=== PATIENT | male | born 1950 | race Caucasian/White ===

== ENCOUNTER 2019-08-24 18:37 | Emergency (ER) | payer OTHER, SELFPAY ==
[2019-08-24 18:38] VITALS: BP 162/95; PULSE 114; RESP 16; TEMP 37.7; O2SAT 96; BMI 28.1
[2019-08-24] MEDS: Mag Hydrox/Al Hydrox/Simeth 30 ML UDC PO (20:11)
--- NOTE | 2019-08-24 20:15 | RAD_ITS ---
STUDY: X-RAY CHEST REASON FOR EXAM: Male, 69 years old. Cough TECHNIQUE: Frontal and lateral views COMPARISON: None. FINDINGS: The lungs are clear and expanded. There is no demonstrated pleural abnormality. Normal size heart. Normal mediastinum and adwoa. Normal visualized pulmonary arteries. Normal visualized aortic arch and descending thoracic aorta. Degenerative changes of the visualized thoracic spine. Normal visualized ribs, clavicles, and shoulders. There is no demonstrated abnormality of the visualized soft tissue structures of the upper abdomen. RAD/Chest PA and Lateral IMPRESSION: Normal x-ray examination of the chest. Electronically Signed: Fransisco Khan DO at 20:26 EST Tel [phone], Service support ,
--- NOTE | 2019-08-24 20:47 | ED.VISSUMM ---
- ER Visit Summary Date of Service: 08/24/19 Chief Complaint: Chest cold History of Present Illness: The patient is a 69 M who presents with chest congestion and sore throat that has been getting worse over the past 4 to 5 days. Patient describes the pain as a burning sensation. Patient states it is in his throat and upper chest. Patient admits to some nasal congestion. Patient also admits to a cough with some yellow rhinorrhea. Patient denies any nausea or vomiting. Patient denies any chest pain or shortness of breath. Patient admits to a low-grade fever of 100 at home. Physical Examination: Vital signs are stable except for slight tachycardia of 114. Patient is afebrile. Patient is in no acute distress. Oral mucosa is pink and moist. Oropharynx shows some postnasal drainage. There is no erythema or exudates. Neck is supple. Trachea is midline. There is no JVD noted. Heart was regular rate and rhythm. Lungs are clear and equal bilaterally. Abdomen is soft. Bowel sounds are normal. There is no tenderness. There is no rebound or guarding noted. Skin is warm dry. Cranial nerves II through XII are intact. There are no focal motor or sensory deficits noted. Extremities are intact. There is no calf tenderness or edema. Test Results: PA and lateral chest x-ray was obtained. There is no acute cardiopulmonary process. This was interpreted by the radiologist and myself. Emergency Department Course and Treatment: Patient was given a GI cocktail. Patient felt better after this. Patient was advised that this is most likely a viral upper respiratory infection in his sore throat was due to his postnasal drainage. Patient was instructed to drink plenty of fluids. Patient was instructed to follow-up with his primary care physician in 5 to 7 days. Patient understood and was agreeable with the plan. All questions were answered. Disposition: Discharge home Impression: Viral upper respiratory infection This note was generated with [employer] dictation software. It may contain incorrect words, spelling, and punctuation that were not noted in review of the chart prior to signing ED Disposition - Plan for ED Patient: Disposition: Home or Assisted Living Diagnosis: Viral upper respiratory infection Instructions: PHARYNGITIS, Viral Referrals: Martin Clark DO [Primary Care Provider] - 5-7 Days
[2019-08-24 20:53] VITALS: PULSE 90; RESP 16; O2SAT 98
== END 2019-08-24 20:54 | disposition home or self-care (01) ==
PROVIDERS: Emergency Provider Emergency Medicine; Family Provider Family Medicine; PCP Family Medicine
DX: J06.9 Acute upper respiratory infection, unspecified (principal)
CPT/HCPCS: 71046; 99283

== ENCOUNTER 2023-04-21 06:44 | Day surgery (SDC) | payer SELFPAY, OTHER ==
[2023-04-21] VITALS (7 sets, daily range): BP systolic 112–135; BP diastolic 64–85; PULSE 56–66; RESP 16–18; TEMP 36.3–36.9; O2SAT 95–100; BMI 27.9
[2023-04-21] MEDS: Lactated Ringers 1,000 ML 15 ML IV (07:35)
--- NOTE | 2023-04-21 07:53 | PCM.HP.STD ---
[facility] - General General Date of Admission: 04/21/23 Date of Service: 04/21/23 Chief Complaint: Screening colonoscopy HPI Vidya RUTH, is a 72 M who presents here for screening colonoscopy. He has no significant past medical history. He has not had a colonoscopy in the past. He does not have any abdominal pain, cramping or diarrhea. He is no signs or symptoms of lower GI bleeding. His weight has been stable. Is no family history of colon polyps or colon malignancy. [facility] Medical History (Updated 04/21/23 @ 07:42 by Reba Singh) Former smoker Knee arthropathy Wears dentures Wears glasses Home Medications NK 08/24/19 [History Last Taken Unknown] Allergy/AdvReac Type Severity Reaction Status Date / Time No Known Allergies Allergy Verified 03/12/23 11:31 Family History (Updated 04/21/23 @ 07:30 by Reba Singh) Brother Myocardial infarction Cony Gehrig disease Social History household members: spouse Smoking Status: Unknown if ever smoked torito/spiritism: Anabaptism ROS Review of Systems ROS Unobtainable: other Constitutional Constitutional: Denies fatigue, fever(s), poor appetite, weight gain or weight loss ENT HEENT: Denies mouth lesions Cardiovascular Cardiovascular: Denies abdominal bloating, abdominal edema or abdominal pain Respiratory/Chest Respiratory/Chest: Denies change in mental status, change in phlegm color, chest congestion or chest tightness Gastrointestinal Gastrointestinal: Denies belching, bloating, change in bowel habits, change in stool character, chewing difficulty, coffee ground emesis, constipation, cramping, diarrhea, dyspepsia, dysphagia, early satiety, excessive flatus, fecal incontinence, heartburn, hematemesis, hematochezia, hemorrhoids, loose stools, melena, nausea, odynophagia, rectal bleeding, tenesmus, vomiting or weight changes Genitourinary Genitourinary: Denies abdominal discomfort, burning urination or itching Musculoskeletal Musculoskeletal: Reports as per HPI; Denies muscle weakness or myalgias Integumentary Integumentary: Denies jaundice Neurologic Neurologic: Denies lack of coordination or weakness Psychiatric Psychiatric: Denies confusion, depression, memory loss, mood swings, paranoia or suicidal ideation Endocrine Endocrinology: Denies systems reviewed and no addt'l complaints, except as documented Hematologic/Lymphatic Hematologic/Lymphatic: Denies anemia, easy bleeding, easy bruising or lymphadenopathy Allergic/Immunologic Allergic/Immunologic: Denies systems reviewed and no addt'l complaints, except as documented Vital Signs Vital Signs Vital Signs: 04/21/23 07:31 04/21/23 07:31 Temperature 98.5 F Temperature Source Temporal Pulse Rate 56 L Respiratory Rate 18 Respiratory Pattern Normal Blood Pressure 135/73 H Blood Pressure Mean 93 Blood Pressure Source Monitor Blood Pressure Position Semi-Fowlers Blood Pressure Location Left Arm Pulse Ox 95 Oxygen Delivery Method Room Air Weight Weight: 184 lb Body Mass Index (BMI) 27.9 Physical Exam Const alert General Appearance: cooperative Orientation / Consciousness: oriented to person HEENT hearing grossly normal bilaterally Head and Scalp: normal to inspection Face and Sinus: face symmetric Nose: external nose normal Mouth: oral and palatal mucosa normal Eyes conjunctivae normal General Eye: normal appearance of both eyes Neck full ROM General: normal visual inspection Lymph Lymphatic: no lymphadenopathy noted Chest inspection of chest normal and palpation of chest normal Chest: symmetrical chest wall rise Resp normal respiratory effort Effort and Inspection: able to speak in complete sentences Cardio regular rate GI non-distended Percussion: normal to percussion Rectal Exam: deferred Neuro Speech: speech normal Gait (Neuro): normal gait Assessment & Plan Assessment/Plan (1) Encounter for screening for malignant neoplasm of colon: PLAN: He was explained alternatives, risk, benefits including not withstanding bleeding, infection, sepsis, perforation, need for emergent surgery . He will have an ASA of 2.
--- NOTE | 2023-04-21 08:00 | COLBX_PTH ---
PATIENT: AKASH RUTH LOC: [facility] U#:[id number] AGE/SX: 72/M ROOM: RE04/21/[address]: Dr. Giles Jensen DO : 1950 BED: DIS: 04/21/2023 SPEC #: [id number] RECD: 04/21/23 09:43 STATUS: SOLIS KEKE #: [id number] JESSIE: 04/21/23 08:[address]: Giles Jensen DEPT: SURGICAL PATHOLOGY RECD BY: Margret Lott ENTERED: 04/21/23 11:01 SP TYPE: COLON BX JACKY DR: Dr. Martin Clark DO Tissues: A - COLON BIOPSY B - Sigmoid colon biopsy C - Rectum, NOS Procedures: Surgery Specimen Level IV HEADER OPERATION: Colonoscopy - open access with polypectomy and biopsies PRE-OP DIAGNOSIS: Screening TISSUE SUBMITTED: A - Splenic flexure polyp, B - Sigmoid colon polyp biopsy, C - Rectal polyp biopsy MICROSCOPIC DIAGNOSIS A. Splenic flexure polyp, polypectomy: Tubular adenoma. Pigment laden macrophages, consistent with melanosis coli. B. Sigmoid colon polyp, biopsy: A fragment of colonic mucosa with pigment laden macrophages, consistent with melanosis coli. C. Rectal polyp, biopsy: Fragments of colonic mucosa with pigment laden macrophages, consistent with melanosis coli. SJ:cata 04/22/2023 MICROSCOPIC DESCRIPTION Slides are reviewed. GROSS DESCRIPTION A - Received in fixative is one container labeled with the patient's name and designated splenic flexure polyp. The specimen consists of multiple irregular fragments of light mukherjee soft tissue mixed with fecal material that in aggregate measure 2.5 x 0.4 x 0.1 cm. The specimen is totally submitted in one cassette. B - Received in fixative is one container labeled with the patient's name and designated sigmoid colon polyp biopsy. The specimen consists of one irregular fragment of light mukherjee soft tissue that measures 0.5 x 0.3 x 0.1 cm. The specimen is totally submitted in one cassette. C - Received in fixative is one container labeled with the patient's name and designated rectal polyp biopsy. The specimen consists of multiple irregular fragments of light mukherjee soft tissue that in aggregate measure 0.6 x 0.3 x 0.1 cm. The specimen is totally submitted in one cassette. / SJ:cata 04/21/2023 TC:1 CPT: 70274 x3
--- NOTE | 2023-04-21 08:26 | OP.COLON_ITS ---
Patient Name: Alex Hardin Procedure Date: 04/21/2023 7:52 AM Date of : 1950 Age: 72 Procedure: Colonoscopy Indications: Screening for colorectal malignant neoplasm Providers: Giles Jensen DO Medicines: Monitored Anesthesia Care Patient Profile: This is a 72 year old male. Refer to note in patient chart for documentation of history and physical. Last Colonoscopy: none. The patient's first colonoscopy is today. Complications: No immediate complications. Procedure: Pre-Anesthesia Assessment: - Prior to the procedure, a History and Physical was performed, and patient medications and allergies were reviewed. The risks and benefits of the procedure and the sedation options and risks were discussed with the patient. All questions were answered and informed consent was obtained. Patient identification and proposed procedure were verified by the physician in the pre-procedure area. Mental Status Examination: alert and oriented. Airway Examination: normal oropharyngeal airway and neck mobility. Respiratory Examination: clear to auscultation. CV Examination: normal. Prophylactic Antibiotics: The patient does not require prophylactic antibiotics. Prior Anticoagulants: The patient has taken no anticoagulant or antiplatelet agents. ASA Grade Assessment: II - A patient with mild systemic disease. After reviewing the risks and benefits, the patient was deemed in satisfactory condition to undergo the procedure. The anesthesia plan was to use monitored anesthesia care (MAC). Immediately prior to administration of medications, the patient was re-assessed for adequacy to receive sedatives. The heart rate, respiratory rate, oxygen saturations, blood pressure, adequacy of pulmonary ventilation, and response to care were monitored throughout the procedure. The physical status of the patient was re-assessed after the procedure. After I obtained informed consent, the scope was passed under direct vision. Throughout the procedure, the patient's blood pressure, pulse, and oxygen saturations were monitored continuously. The Colonoscope was introduced through the anus and advanced to the cecum, identified by appendiceal orifice and ileocecal valve. The colonoscopy was performed without difficulty. The patient tolerated the procedure well. The quality of the bowel preparation was adequate. Scope In: 8:03:02 AM Scope Withdrawal Time 0 hours 9 minutes 19 seconds Scope Out: 8:20:35 AM Total Procedure Duration Time 0 hours 17 minutes 33 seconds Findings: The perianal and digital rectal examinations were normal. A few small and large-mouthed diverticula were found in the recto-sigmoid colon and sigmoid colon. A 7 mm polyp was found in the splenic flexure. The polyp was sessile. The polyp was removed with a hot snare. Resection and retrieval were complete. Verification of patient identification for the specimen was done. Estimated blood loss was minimal. Two sessile polyps were found in the rectum and sigmoid colon. The polyps were 1 to 2 mm in size. These polyps were removed with a cold snare. Resection and retrieval were complete. Verification of patient identification for the specimen was done. Estimated blood loss was minimal. A diffuse area of severe melanosis was found in the entire colon. Biopsies were taken with a cold forceps for histology. Verification of patient identification for the specimen was done. Estimated blood loss was minimal. Impression: - Diverticulosis in the recto-sigmoid colon and in the sigmoid colon. - One 7 mm polyp at the splenic flexure, removed with a hot snare. Resected and retrieved. - Two 1 to 2 mm polyps in the rectum and in the sigmoid colon, removed with a cold snare. Resected and retrieved. - Melanosis in the colon. Biopsied. Recommendation: - Discharge patient to home. - Resume previous diet. - Continue present medications. - Await pathology results. - Repeat colonoscopy in 5 years for surveillance. Procedure Code(s): --- Professional --- 60023, Colonoscopy, flexible; with removal of tumor(s), polyp(s), or other lesion(s) by snare technique 01811, 59, Colonoscopy, flexible; with biopsy, single or multiple CPT copyright 2021 [employer]. All rights reserved. The codes documented in this report are preliminary and upon chiller operator review may be revised to meet current compliance requirements. Giles Jensen DO 04/21/2023 8:26:21 AM This report has been signed electronically. Number of Addenda: 0 Note Initiated On: 04/21/2023 7:52 AM
--- NOTE | 2023-04-21 08:27 | OP.CCLET_ITS ---
04/21/2023 Martin lCark Re : Colonoscopy procedure for Alex Henleyr Amber This procedure was performed on Friday, April 21, 2023. My impressions and recommendations are as follows: Impressions : - Diverticulosis in the recto-sigmoid colon and in the sigmoid colon. - One 7 mm polyp at the splenic flexure, removed with a hot snare. Resected and retrieved. - Two 1 to 2 mm polyps in the rectum and in the sigmoid colon, removed with a cold snare. Resected and retrieved. - Melanosis in the colon. Biopsied. Recommendations : - Discharge patient to home. - Resume previous diet. - Continue present medications. - Await pathology results. - Repeat colonoscopy in 5 years for surveillance. My findings are described in the full procedure note, which is enclosed. If I can be of further assistance, please feel free to contact me at . Sincerely, Giles Jensen, 04/21/2023 8:26:21 AM This report has been signed electronically.
== END 2023-04-21 09:22 | disposition home or self-care (01) ==
LOC: EN 06:48 → AC 06:48
PROVIDERS: PCP Family Medicine; Referring Provider Family Medicine; Visit Provider Internal Medicine Gastroenterology
PROC: 0DJD8ZZ Inspection of Lower Intestinal Tract, Via Natural or Artificial Opening Endoscopic (ICD-10-PCS; CPT 45378; principal; 2023-04-21 07:55)
DX: Z12.11 Encounter for screening for malignant neoplasm of colon (principal); K57.30 Diverticulosis of large intestine without perforation or abscess without bleeding; D12.3 Benign neoplasm of transverse colon; K63.89 Other specified diseases of intestine; K62.1 Rectal polyp; Z90.49 Acquired absence of other specified parts of digestive tract; Z87.891 Personal history of nicotine dependence
CPT/HCPCS: 45385; 45380; 88305; J7120; J2405

== ENCOUNTER 2024-07-30 16:25 | Emergency (ER) | payer OTHER, SELFPAY ==
[2024-07-30 16:25] VITALS: BP 190/87
[2024-07-30 16:28] VITALS: BP 188/84; PULSE 59; RESP 13; TEMP 36.9; O2SAT 99; BMI 28.8
--- NOTE | 2024-07-30 17:02 | EKG12_ITS ---
Test Reason : CP Blood Pressure : */* mmHG Vent. Rate : 53 BPM Atrial Rate : 53 BPM P-R Int : 174 ms QRS Dur : 80 ms QT Int : 408 ms P-R-T Axes : 81 51 44 degrees QTcB Int : 382 ms Sinus bradycardia with marked sinus arrhythmia Otherwise normal ECG Confirmed by RAYMON ALCAZAR, ALEC ([id number]), assistant film editor PATRICIA NICOLAS ([id number]) on 08/01/2024 8:04:50 AM Referred By: Confirmed By: ALEC ENNIS MD
--- NOTE | 2024-07-30 17:02 | CT_ITS ---
STUDY: CT Abdomen And Pelvis W/ Contrast Injection 07/30/2024 5:57 PM REASON FOR EXAM: Male, 74 years old. Abdominal pain abdominal pain Individualized dose optimization techniques were used for this CT. COMPARISON: 07.29.14. TECHNIQUE: CT Abdomen And Pelvis W/ Contrast Injection IV 100mL [id number] FINDINGS: There are atherosclerotic calcifications of visualized coronary arteries. The visualized portions of the heart are within normal limits. Normal liver. Normal gallbladder and extrahepatic biliary system. There are multiple benign calcified granulomata of the spleen. Normal pancreas. Normal bilateral adrenal glands. There are hypodensities in the right kidney. These are consistent for cysts. No follow up required. There are hypodensities in the left kidney. These are consistent for cysts. No follow up required. Normal visualized stomach. Normal small intestine. Stool throughout the colon. There is non-visualization of the appendix. There are calcifications of the abdominal aorta. This is consistent for atherosclerotic disease. There is NO abdominal aortic aneurysm. Vascular workup can be obtained based on clinical correlation. Normal inferior vena cava. Subcentimeter mesenteric lymph nodes. Urinary bladder wall has wall thickening. This can be related to a partially contractile state. However, a cystitis is not excluded. Urinalysis should be performed in an effort to exclude cystitis. There is an umbilical hernia containing fat. There are diffuse degenerative changes of the visualized lumbar spine. There is bilateral neural foraminal stenosis at L4-5 and L5-S1. CT/Abdomen/Pelvis W IV Cont ONLY IMPRESSION: (NOT LISTED IN ORDER OF SIGNIFICANCE) Urinary bladder wall has wall thickening. This can be related to a partially contractile state. However, a cystitis is not excluded. Urinalysis should be performed in an effort to exclude cystitis. Other findings as above. Electronically Signed: Kem Stahl MD at 18:00 EST ,
[2024-07-30] MEDS: Ondansetron 4 MG/2 ML Vial IV (17:07)
[2024-07-30] MEDS: Morphine 4 MG/ML Syringe IV (17:07)
[2024-07-30 17:25] VITALS: BP 159/47; PULSE 72; RESP 18; O2SAT 96
[2024-07-30 17:25] LABS: Absolute Lymphocyte Count 1.11 X10^3/uL (0.83-4.51); Absolute Neutrophil Count 6.8 X10^3/uL (2.0-7.7); Basophil# 0.03 X10^3/uL; Basophil% 0.3 % (0-1); Eosinophil# 0.03 X10^3/uL; Eosinophils% 0.3 % (0-5); Hematocrit 41.8 % (40-54); Hemoglobin 13.9 g/dL (13.0-16.5); Lymphocyte # 1.11 X10^3/ul (0.83-4.51); Lymphocyte % 12.6 % (19-41); Mean Corp Hgb Conc 33.3 g/dL (32-36); Mean Corpuscular Hgb 31.8 pg (27.0-32.0); Mean Corpuscular Volume 95.7 fL (80-94); Mean Platelet Vol. 9.7 fl (6.2-12.0); Monocyte# 0.86 X10^3/uL; Monocyte% 9.7 % (0-10); NRBC Flagged by Analyzer 0 % (0-5); Neutrophil # 6.79 X10^3/uL (2.7-7.7); Neutrophil % 76.9 % (47-70); Platelet Count 269 K/mm3 (150-450); RBC Distribution Width CV 13.8 % (11.6-14.6); RBC Distribution Width SD 49.1 fl (35.1-43.9); Red Blood Count 4.37 M/mm3 (4.6-6.2); White Blood Count 8.8 K/mm3 (4.4-11.0)
[2024-07-30 17:38] LABS: Lactic Acid 0.9 mmol/L (0.4-1.9)
--- NOTE | 2024-07-30 17:40 | EX.ED.DYSGE1 ---
HPI <BRUCE Brito - Last Filed: 07/30/24 19:30> History of Present Illness Chief Complaint: Chest Pain Narrative Narrative: Patient 74-year-old male who currently does not see a doctor regular basis presenting to the emerged department with complaints of generalized abdominal discomfort, bloating, chest pressure. Patient states this has been ongoing for the last several years. He does have history of bowel obstruction. Denies any surgical history. Patient states over the last couple days has been having worsening belly pain, constipation as well as some bloating. He states that sometimes the pain goes up into his chest as a pressure. He did have a bowel movement around 11:00 today after an enema however states the pain returned and is here for evaluation. [facility] <BRUCE Brito - Last Filed: 07/30/24 19:30> [facility] Medical History (Updated 07/30/24 @ 19:16 by BRUCE Brito) Knee arthropathy Former smoker Wears dentures Wears glasses Home Medications ?Medication ?Instructions ?Recorded ?Last Taken ?Type acetaminophen 650 mg 650 mg PO Q12H PRN knee pain 07/30/24 Unknown History tablet,extended release (Tylenol Arthritis Pain) pantoprazole 40 mg tablet,delayed 40 mg PO DAILY #30 tabs 07/30/24 Unknown Rx release (Protonix) Allergy/AdvReac Type Severity Reaction Status Date / Time No Known Allergies Allergy Verified 07/30/24 16:32 Family History (Updated 04/21/23 @ 07:30 by Reba Singh) Brother Myocardial infarction Cony Gehrig disease Social History household members: spouse Smoking Status: Unknown if ever smoked torito/roman catholic: Religious ROS <BRUCE Brito - Last Filed: 07/30/24 19:30> ROS ED ROS Narrative Constitutional: Negative for fever, chills, weight loss, weakness Eyes: Negative for vision loss, vision change, double vision ENT: Negative for any sore throat, ear pain, congestion Cardiovascular: Negative for any chest pain, tightness, palpitations. Positive chest pressure Respiratory: Negative for any cough, sputum production, hemoptysis, dyspnea, dyspnea on exertion, orthopnea Gastrointestinal: Negative for any vomiting, diarrhea, constipation, blood in stool, blood in vomit. Positive abdominal pain, abdominal bloating : Negative for any urinary frequency, dysuria, retention, blood in urine Muscle skeletal: Negative for any neck pain, back pain Neurological: Negative for any headache, syncope, dizziness Skin: Negative for any rashes, itching, abrasions, lacerations Psychiatric: Negative for any depression, anxiety, stress, suicidal ideation, homicidal ideation Hematologic: Negative for any excessive bruising, easy bleeding EXAM <BRUCE Brito - Last Filed: 07/30/24 19:30> Physical Exam Narrative Exam Narrative: Vital signs reviewed. HEET: Head normocephalic atraumatic, TMs clear bilaterally. Posterior pharynx is clear, moist mucous membranes. Nares clear bilaterally. Neck: Supple with no lymphadenopathy or tenderness. No signs of meningismus. Cardiac: Regular rate and rhythm no murmurs gallops or rubs, equal peripheral pulses bilaterally. Respiratory: Lungs clear to auscultation bilaterally. No chest tenderness. Abdomen: Soft, nontender, nondistended. No abdominal bruit or pulsatile masses. No hepatosplenomegaly. No peritoneal signs. Active bowel sounds in all quadrants. Extremities: No peripheral edema, no signs of gross trauma or deformity. Active full range of motion of all extremities. Neuro: Cranial nerves II through XII intact, no focal neurological deficits. Skin: Clean dry and intact with no rash, purpura, petechiae, vesicles or pustules. Backs/flank: No CVA tenderness, no midline spinal tenderness, no deformity. Psych: Normal mood and affect. No SI, HI or acute psychosis. Const Vital Signs: 07/30/24 16:25 07/30/24 16:28 07/30/24 16:32 Temperature 98.5 F Temperature Source Oral Pulse Rate 59 L Respiratory Rate 13 Respiratory Effort Normal Non-Labored Blood Pressure 190/87 H 188/84 H Blood Pressure Mean 121 118 Pulse Ox 99 Oxygen Delivery Method Room Air 07/30/24 17:25 07/30/24 18:00 07/30/24 19:00 Temperature Temperature Source Pulse Rate 72 78 54 L Respiratory Rate 18 19 H 12 Respiratory Effort Blood Pressure 159/47 H 133/64 H 172/81 H Blood Pressure Mean 84 87 111 Pulse Ox 96 98 98 Oxygen Delivery Method Room Air Room Air Room Air 07/30/24 19:30 Temperature 97.8 F Temperature Source Pulse Rate 64 Respiratory Rate 16 Respiratory Effort Blood Pressure 163/80 H Blood Pressure Mean 107 Pulse Ox 99 Oxygen Delivery Method <Dr. John Alvarez DO - Last Filed: 07/30/24 20:52> Physical Exam Const Vital Signs: 07/30/24 16:25 07/30/24 16:28 07/30/24 16:32 Temperature 98.5 F Temperature Source Oral Pulse Rate 59 L Respiratory Rate 13 Respiratory Effort Normal Non-Labored Blood Pressure 190/87 H 188/84 H Blood Pressure Mean 121 118 Pulse Ox 99 Oxygen Delivery Method Room Air 07/30/24 17:25 07/30/24 18:00 07/30/24 19:00 Temperature Temperature Source Pulse Rate 72 78 54 L Respiratory Rate 18 19 H 12 Respiratory Effort Blood Pressure 159/47 H 133/64 H 172/81 H Blood Pressure Mean 84 87 111 Pulse Ox 96 98 98 Oxygen Delivery Method Room Air Room Air Room Air 07/30/24 19:30 Temperature 97.8 F Temperature Source Pulse Rate 64 Respiratory Rate 16 Respiratory Effort Blood Pressure 163/80 H Blood Pressure Mean 107 Pulse Ox 99 Oxygen Delivery Method [facility] <BRUCE Brito - Last Filed: 07/30/24 19:30> [facility] Lab Data Labs: Laboratory Results - last 24 hr 07/30/24 07/30/24 07/30/24 16:37 18:10 18:15 WBC 8.8 RBC 4.37 L Hgb 13.9 Hct 41.8 MCV 95.7 H MCH 31.8 MCHC 33.3 RDW Std Deviation 49.1 H RDW Coeff of Corrine 13.8 Plt Count 269 MPV 9.7 Immature Gran % (Auto) 0.200 Neut % (Auto) 76.9 H Lymph % (Auto) 12.6 L Erie % (Auto) 9.7 Eos % (Auto) 0.3 Baso % (Auto) 0.3 Absolute Neuts (auto) 6.8 Absolute Lymphs (auto) 1.11 Nucleated RBC % 0 Sodium 137 Potassium 3.9 Chloride 105 Carbon Dioxide 25.0 Anion Gap 7 BUN 26 H Creatinine 0.96 Estim Creat Clear Calc 69.85 Est GFR (MDRD) Af Amer 98 Est GFR (MDRD) Non-Af 81 BUN/Creatinine Ratio 27.1 H Glucose 123 H Lactic Acid 0.9 Calcium 9.0 Total Bilirubin 1.10 H AST 27 ALT 32 Alkaline Phosphatase 57 Troponin I High Sens 7 10 Total Protein 7.1 Albumin 3.6 Globulin 3.5 Albumin/Globulin Ratio 1.0 Lipase 48 Urine Color Yellow Urine Clarity Clear Urine pH 6.5 Ur Specific Clark 1.010 Urine Protein 30 H Urine Glucose (UA) Normal Urine Ketones 15 H Urine Occult Blood 25 H Urine Nitrite Negative Urine Bilirubin Negative Urine Urobilinogen Normal Ur Leukocyte Esterase 25 H Urine RBC 0-5 SEEN Urine WBC 0-5 SEEN Ur Squamous Epith Cells 0-5 SEEN Urine Bacteria 0 SEEN Urine Mucus 1+ Radiography Diagnostic Testing: Clinical Impression(s) from Imaging Studies Abdomen/Pelvis CT 07/30/24 17:02 IMPRESSION: (NOT LISTED IN ORDER OF SIGNIFICANCE) Urinary bladder wall has wall thickening. This can be related to a partially contractile state. However, a cystitis is not excluded. Urinalysis should be performed in an effort to exclude cystitis. Other findings as above. Electronically Signed: Kem Stahl MD at 18:00 EST , Chest X-Ray 07/30/24 18:09 IMPRESSION: There are no acute findings. Electronically Signed: Kem Stahl MD at 19:01 EST , EKG Sinus bradycardia: Attestation: I personally reviewed and interpreted this EKG as follows: Comments: Sinus bradycardia, rate of 53 bpm, UT interval 174 ms, QRS duration 80 ms, no acute ST elevation, no acute infarct noted. Treatment and Re-Evaluation :: Differential diagnosis includes however is not limited to: ACS, RI, bowel obstruction, acute cholecystitis, acute appendicitis, constipation, Patient is alert and orient x 4. Slightly hypertensive, bradycardic, patient unsure if this is normal. Pay states that he is in significant mount of pain to his abdomen, rates it 8 out of 10. To the emergency department for abdominal pain, chest pressure. Patient received a full abdominal workup, as well as a chest pain workup. 2 troponins, chest x-ray as well as CT scan of the abdomen pelvis with IV contrast. All radiologic examinations were read, reviewed by the emergency department attending. From these reads, a plan of care will be put in place. Laboratory values are to CBC CMP lipase will also be obtained. IV morphine, Zofran given for the patient. Patient will need to be reevaluated. Patient CBC was unremarkable, patient's chemistries were unremarkable, lipase was negative. Chest x-ray showed no acute findings. Urinalysis was negative for any infection. Patient's abdomen CT shows no acute process. Urinary bladder wall thickening. No other acute findings. At this time, patient be given a GI cocktail. He placed on Protonix. He will follow-up with Dr. Jensen. Instructed return for any worsening symptoms. <Dr. John Alvarez, DO - Last Filed: 07/30/24 20:52> [facility] Lab Data Labs: Laboratory Results - last 24 hr 07/30/24 07/30/24 07/30/24 16:37 18:10 18:15 WBC 8.8 RBC 4.37 L Hgb 13.9 Hct 41.8 MCV 95.7 H MCH 31.8 MCHC 33.3 RDW Std Deviation 49.1 H RDW Coeff of Corrine 13.8 Plt Count 269 MPV 9.7 Immature Gran % (Auto) 0.200 Neut % (Auto) 76.9 H Lymph % (Auto) 12.6 L Erie % (Auto) 9.7 Eos % (Auto) 0.3 Baso % (Auto) 0.3 Absolute Neuts (auto) 6.8 Absolute Lymphs (auto) 1.11 Nucleated RBC % 0 Sodium 137 Potassium 3.9 Chloride 105 Carbon Dioxide 25.0 Anion Gap 7 BUN 26 H Creatinine 0.96 Estim Creat Clear Calc 69.85 Est GFR (MDRD) Af Amer 98 Est GFR (MDRD) Non-Af 81 BUN/Creatinine Ratio 27.1 H Glucose 123 H Lactic Acid 0.9 Calcium 9.0 Total Bilirubin 1.10 H AST 27 ALT 32 Alkaline Phosphatase 57 Troponin I High Sens 7 10 Total Protein 7.1 Albumin 3.6 Globulin 3.5 Albumin/Globulin Ratio 1.0 Lipase 48 Urine Color Yellow Urine Clarity Clear Urine pH 6.5 Ur Specific Clark 1.010 Urine Protein 30 H Urine Glucose (UA) Normal Urine Ketones 15 H Urine Occult Blood 25 H Urine Nitrite Negative Urine Bilirubin Negative Urine Urobilinogen Normal Ur Leukocyte Esterase 25 H Urine RBC 0-5 SEEN Urine WBC 0-5 SEEN Ur Squamous Epith Cells 0-5 SEEN Urine Bacteria 0 SEEN Urine Mucus 1+ Radiography Diagnostic Testing: Clinical Impression(s) from Imaging Studies Abdomen/Pelvis CT 07/30/24 17:02 IMPRESSION: (NOT LISTED IN ORDER OF SIGNIFICANCE) Urinary bladder wall has wall thickening. This can be related to a partially contractile state. However, a cystitis is not excluded. Urinalysis should be performed in an effort to exclude cystitis. Other findings as above. Electronically Signed: Kem Stahl MD at 18:00 EST , Chest X-Ray 07/30/24 18:09 IMPRESSION: There are no acute findings. Electronically Signed: Kem Stahl MD at 19:01 EST , Treatment and Re-Evaluation :: Differential diagnosis includes however is not limited to: ACS, RI, bowel obstruction, acute cholecystitis, acute appendicitis, constipation, Patient is alert and orient x 4. Slightly hypertensive, bradycardic, patient unsure if this is normal. Pay states that he is in significant mount of pain to his abdomen, rates it 8 out of 10. To the emergency department for abdominal pain, chest pressure. Patient received a full abdominal workup, as well as a chest pain workup. 2 troponins, chest x-ray as well as CT scan of the abdomen pelvis with IV contrast. All radiologic examinations were read, reviewed by the emergency department attending. From these reads, a plan of care will be put in place. Laboratory values are to CBC CMP lipase will also be obtained. IV morphine, Zofran given for the patient. Patient will need to be reevaluated. Patient CBC was unremarkable, patient's chemistries were unremarkable, lipase was negative. Chest x-ray showed no acute findings. Urinalysis was negative for any infection. Patient's abdomen CT shows no acute process. Urinary bladder wall thickening. No other acute findings. At this time, patient be given a GI cocktail. He placed on Protonix. He will follow-up with Dr. Jensen. Instructed return for any worsening symptoms. On reevaluation the patient's blood pressure improved to 163/80 from 190/87, heart rate improved from 59-64. Repeat abdominal exam remained benign. ED attending note: I evaluated the patient in conjunction with the BETH. I agree with his/her statements and above findings. I have personally performed a face to face assessment of the patient and have reviewed the BETH Note. I performed a substantive portion of the visit including all aspects of the following. I personally saw the patient performed chart review, physical exam, reviewed labs, imaging (if obtained), and formulated a treatment and management plan. This note was generated with [employer] dictation software. It may contain incorrect words, spelling, and punctuation that were not noted in review of the chart prior to signing. Discharge Plan Triage Chief Complaint: Chest Pain ED Midlevel Provider: Sahil Beaver ED Provider: John Alvarez Dx/Rx/DC Orders Clinical Impression: Abdominal pain Instructions: Abdominal Pain Prescriptions: New pantoprazole [Protonix] 40 mg tablet,delayed release (DR/EC) 40 mg PO DAILY Qty: 30 1RF No Action acetaminophen [Tylenol Arthritis Pain] 650 mg tablet extended release 650 mg PO Q12H PRN (Reason: knee pain) Primary Care Provider: Martin Clark Referrals: Martin Clark DO [Primary Care Provider] - Giles Jensen DO [Med Staff - Active Staff] - Activity Restrictions/Additional Instructions: Please follow-up. If you get chest pains, sweating, uncontrolled nausea and vomiting please return. Print Language: Tajik Disposition Disposition: Home, Self Care Discharge Date/Time: 07/30/24 19:30
[2024-07-30 17:51] LABS: AST(SGOT) 27 U/L (15-37); Alanine Aminotransfer ALT/SGPT 32 U/L (16-61); Albumin, Serum 3.6 g/dL (3.2-5.0); Alkaline Phosphatase 57 U/L (45-117); Anion Gap 7 (5-15); BUN 26 mg/dL (7-18); BUN/Creat Ratio 27.1 RATIO (10-20); Chloride 105 mmol/L (98-107); Creatinine, Serum 0.96 mg/dL (0.70-1.30); EST Glomerular Filtration Rate 81 mL/min (>60); Est Glom Filt Rate - Afr Amer 98 mL/min (>60); Estimated Creatinine Clearance 69.85 ml/min; Globulin 3.5 g/dL (2.2-4.2); Glucose 123 mg/dL (74-106); Lipase 48 U/L (13-75); Potassium 3.9 mmol/L (3.5-5.1); Protein, Total 7.1 g/dL (6.4-8.2); Sodium Level 137 mmol/L (136-145); Troponin-I HS 7 pg/mL (3.0-78.0)
[2024-07-30 18:00] VITALS: BP 133/64; PULSE 78; RESP 19; O2SAT 98
--- NOTE | 2024-07-30 18:09 | RAD_ITS ---
STUDY: XR Chest 1 View 07/30/2024 6:21 PM REASON FOR EXAM: Male, 74 years old. cough COMPARISON: 1.2.20 TECHNIQUE: XR Chest 1 View FINDINGS: There is no demonstrated pleural abnormality. Normal heart size. Normal mediastinum. Normal adwoa. Prominent appearing increased interstitial lung markings. Normal visualized pulmonary arteries. There is atherosclerotic calcification of the aortic arch with tortuosity. There are diffuse degenerative changes of the visualized thoracic spine. There is degenerative osteoarthritis of the bilateral shoulders. There are no acute findings of the upper abdomen. RAD/Chest 1 View (Portable) IMPRESSION: There are no acute findings. Electronically Signed: Kem Stahl MD at 19:01 EST ,
[2024-07-30 18:17] LABS: Bacteria 0 SEEN /hpf (None Seen)
[2024-07-30 18:22] LABS: Color, Urine Yellow (Yellow); Glucose, Dipstick Normal (Normal); Ketone-Dipstick 15 mg/dl (Negative); Leukocyte Esterase-Dipstick 25 /ul (Negative); Nitrite-Dipstick Negative (Negative); Occult Blood-Urine 25 /ul (Negative); Protein-Dipstick 30 mg/dl (Negative); Urine Bilirubin Dipstick Negative (Negative); Urine Clarity Clear (Clear); Urine Urobilinogen Normal (Normal); Urine pH 6.5 (5.0 - 8.0)
[2024-07-30 18:31] LABS: Red Blood Cells-Urine 0-5 SEEN /hpf (0-5); White Blood Cells 0-5 SEEN /hpf (0-5)
[2024-07-30 18:32] LABS: Squamous Epithelial Cells - UA 0-5 SEEN /hpf (0-5)
[2024-07-30 18:33] LABS: Mucous, Urine 1+ /hpf (<or=2+)
[2024-07-30 18:42] LABS: Troponin-I HS 10 pg/mL (3.0-78.0)
[2024-07-30 19:00] VITALS: BP 172/81; PULSE 54; RESP 12; O2SAT 98
[2024-07-30] MEDS: Lidocaine 2% Viscous15 ML UDC 15 ML PO (19:26)
[2024-07-30] MEDS: Mag Hydrox/Al Hydrox/Simeth 30 ML UDC PO (19:26)
[2024-07-30 19:30] VITALS: BP 163/80; PULSE 64; RESP 16; TEMP 36.6; O2SAT 99
== END 2024-07-30 19:30 | disposition home or self-care (01) ==
PROVIDERS: Nurse Practitioner; Emergency Provider Emergency Medicine; PCP Family Medicine; Visit Provider Emergency Medicine
DX: R10.9 Unspecified abdominal pain (principal)
CPT/HCPCS: 71045; 74177; 80053; 81001; 83605; 83690; 84484; 85025; 93005; 96374; 96375; 99283; Q9967; A4216; J2405

== ENCOUNTER → 2025-02-15 | Outpatient (CLI) | payer SELFPAY, OTHER ==
--- NOTE | 2025-02-15 08:35 | ECHOD_ITS ---
Reason For Study Reason For Study: Afib/Flutter Procedure This was a 2D Doppler, Color Flow transthoracic echocardiogram. Exam performed in department. Left Ventricle Normal LV size. The left ventricular ejection fraction is 40 %. There is mild global hypokinesis of the left ventricle. Right Ventricle Normal RV size. Normal systolic function. Atria The left atrium is mildly enlarged. The right atrium is moderately enlarged. Mitral Valve Normal mitral valve. Mild-Moderate (1-2+) eccentric mitral valve insufficiency. Tricuspid Valve Normal tricuspid valve. Mild to moderate (1-2+) tricuspid valve insufficiency. Pulmonary artery systolic pressure is 42 mmHg. Aortic Valve Trisinus/trileaflet aortic valve. Pulmonic Valve Normal pulmonic valve. Great Vessels Normal aortic root. The pulmonary artery is normal size. Inferior vena cava collapse with respiration. Pericardium/Pleural No pericardial effusion. MMode/2D Measurements & Calculations LVIDd: 5.0 cm IVSd: 1.2 cm LVOT diam: 2.1 cm LVIDs: 3.7 cm LVPWd: 1.1 cm LVOT area: 3.4 cm2 RVDd: 3.8 cm FS: 26.5 % Ao root diam: 3.9 cm LAV(MOD-bp): 71.0 ml LVAd ap4: 28.6 cm2 LAV(MOD-bp) Indexed: 35.1 ml/m2 LVLd ap4: 7.8 cm LAV(MOD-sp2): 71.4 ml EDV(MOD-sp4): 86.1 ml LAV(MOD-sp4): 67.6 ml EDV(sp4-el): 89.2 ml LVAs ap4: 21.5 cm2 LVLs ap4: 7.3 cm ESV(MOD-sp4): 52.3 ml ESV(sp4-el): 54.1 ml EF(MOD-sp4): 39.2 % EF(sp4-el): 39.4 % SV(MOD-sp4): 33.7 ml SV(sp4-el): 35.2 ml Ao sinus diam: 3.6 cm SI(MOD-sp4): 16.7 ml/m2 Ao ST Junction: 2.5 cm LA A4 area: 23.0 cm2 LA dimension(2D): 4.5 cm TAPSE: 1.3 cm RA A4 area: 24.6 cm2 Doppler Measurements & Calculations MV E max wing: 82.3 cm/sec MV V2 max: 107.1 cm/sec Ao V2 max: 146.6 cm/sec MV max P.6 mmHg Ao max P.6 mmHg MV V2 mean: 63.7 cm/sec Ao V2 mean: 103.7 cm/sec MV mean P.9 mmHg Ao mean P.9 mmHg MV V2 VTI: 23.3 cm Ao V2 VTI: 23.1 cm MVA(VTI): 1.7 cm2 AV (velocity ratio): 0.52 SAM(I,D): 1.8 cm2 SAM(V,D): 1.6 cm2 LV V1 max: 67.2 cm/sec MR max wing: 483.7 cm/sec SV(LVOT): 40.6 ml LV V1 max P.8 mmHg MR max P.6 mmHg LV V1 mean P.1 mmHg MR mean wing: 365.1 cm/sec LV V1 mean: 48.8 cm/sec MR mean P.8 mmHg LV V1 VTI: 11.9 cm MR VTI: 129.3 cm PA V2 max: 74.2 cm/sec TR max wing: 307.6 cm/sec TR max P.8 mmHg ECHO/Echo Complete Interpretation Summary The left ventricular ejection fraction is 40 %. Normal LV size. There is mild global hypokinesis of the left ventricle. The left atrium is mildly enlarged. The right atrium is moderately enlarged. Mild-Moderate (1-2+) eccentric mitral valve insufficiency. Mild to moderate (1-2+) tricuspid valve insufficiency. Ordering Physician: Skyler Greer Referring Physician: Skyler Greer Performed By: Eliseo Lau RCS
--- OUTSIDE RECORDS SUMMARY | 2025-02-15 09:36 | XMS RPT_ITS | CCD ---
Author Organization [facility] CliniSyct Care Team Providers Care Machinist Helper Name Role Phone Dr. Martin Clark Primary Care Provider [phone] Aliya Cruz Attending Provider Unavailable Dr. Martin Clark Referring Provider [phone] Friend, Dr. Skaggs Attending Provider Friend, Dr. Skaggs Other Provider Dr. Martin Clark DO Primary Care Provider Dr. Martin Clark DO Referring Provider Percy ALCAZAR, Dr. Holland Attending Provider [phone] Martin lCark Primary Care Unavailable Martin Clark Referring Unavailable Skyler Greer Attending Unavailable John Alvarez Attending Unavailable Martin Clark Primary Care Unavailable Martin Clark Primary Care Unavailable Skyler Greer Attending Unavailable Skyler Greer Referring Unavailable Medications Current Medications Medication Drug Class(es) Dates Sig (Normalized) Sig (Original) 8 hr acetaminophen 650 mg extended release oral tablet (1 source) Start: 07-30-2024 take 1 tablet by mouth every twelve hours as needed for pain Acetaminophen (Tylenol Arthritis Pain) 650 mg tablet extended release Active 650 mg PO Q12H as needed for knee pain July 30, 2024 1:00am apixaban 5 mg oral tablet (1 source) Factor Xa Inhibitor Start: 12-15-2024 take 1 tablet by mouth twice daily Apixaban (Eliquis) 5 mg tablet Active 5 mg PO TWICE A DAY December 15, 2024 12:00am 24 hr dilTIAZem hydrochloride 180 mg extended release oral capsule (2 sources) Calcium Channel Noy Start: 01-10-2025 take 1 capsule by mouth twice daily Diltiazem Hcl 180 mg capsule,extended release 24hr Active 180 mg PO TWICE A DAY January 10, 2025 2:57pm Start: 12-15-2024 End: 01-10-2025 take 1 capsule by mouth once daily Diltiazem Hcl 180 mg capsule,extended release 24hr Discontinued 180 mg PO daily December 15, 2024 12:00am January 10, 2025 2:59pm furosemide 40 mg oral tablet (2 sources) Loop Diuretic Start: 01-10-2025 take 1 tablet by mouth twice daily Furosemide (Lasix) 40 mg tablet Active 40 mg PO TWICE A DAY January 10, 2025 2:57pm Start: 12-15-2024 End: 01-10-2025 take 1 tablet by mouth once daily Furosemide (Lasix) 40 mg tablet Discontinued 40 mg PO daily December 15, 2024 12:00am January 10, 2025 2:59pm hydrOXYzine pamoate 25 mg oral capsule (1 source) Antihistamine Start: 12-15-2024 take 1 capsule by mouth at bedtime Hydroxyzine Pamoate (Vistaril) 25 mg capsule Active 25 mg PO AT BEDTIME December 15, 2024 12:00am microencapsulated potassium chloride 20 meq extended release oral tablet (2 sources) Start: 01-10-2025 take 1 tablet by mouth every other day Potassium Chloride 20 mEq tablet,ER particles/crystal s Active 20 meq PO every other day January 10, 2025 2:58pm Start: 12-15-2024 End: 01-10-2025 take 1 tablet by mouth once daily Potassium Chloride 20 mEq tablet,ER particles/crystals Discontinued 20 meq PO daily December 15, 2024 12:00am January 10, 2025 2:59pm Completed/Discontinued Medications Medication Drug Class(es) Dates Sig (Normalized) Sig (Original) 24 hr metoprolol succinate 50 mg extended release oral tablet (1 source) beta-Adrenergic Noy Start: 12-15-2024 End: 01-10-2025 take 1 tablet by mouth once daily Metoprolol Succinate 50 mg tablet extended release 24 hr Discontinued 50 mg PO daily December 15, 2024 12:00am January 10, 2025 2:59pm pantoprazole 40 mg delayed release oral tablet (1 source) Proton Pump Inhibitor Start: 07-30-2024 End: 01-10-2025 take 1 tablet by mouth once daily Pantoprazole (Protonix) 40 mg tablet,delayed release (DR/EC) Discontinued 40 mg PO DAILY July 30, 2024 1:00am January 10, 2025 2:59pm Problems Active Problems Problem Classification Problem Date Documented Da te Episodic/Chronic Abdominal pain (1 source) Abdominal pain; Translations: [Unspecified abdominal pain] 08-07-2024 Episodic Cardiac dysrhythmias (3 sources) Atrial fibrillation; Translations: [Unspecified atrial fibrillation] Onset: 01-10-2025 12-15-2024 Chronic Other screening for suspected conditions (not mental disorders or infectious disease) (3 sources) Patient encounter status; Translations: [Encounter for screening for malignant neoplasm of colon] 03-12-2023 Episodic Other upper respiratory infections (2 sources) Viral upper respiratory tract infection; Translations: [Acute upper respiratory infection, unspecified] 08-25-2019 Episodic Past or Other Problems Problem Classification Problem Date Documented Da te Episodic/Chronic Nonspecific chest pain (1 source) Chest pain, unspecified; Translations: [Chest pain, unspecified] Onset: 08-31-2024 Episodic Results Test Name Value Interpretation Reference Range Facil ity Cardiology Visit Reporton Cardiology Visit Report [facility] [address] [place], [place] [address] OFFICE VISIT Date of Service: 01/10/25 MR#: [id number] Acct: [id number] Name: AKASH RUTH Rep #: [id number] : 1950 Provider: Dr. Skyler Greer MD Age/Sex: 74/M Location: [facility] [place] Status: Signed HPI HPI History of Present Illness Details: 74-year-old man with no previous cardiac history who presents for evaluation of his shortness of breath. He says that he had seen you sometime in October of this year complaining of palpitations and shortness of breath. An EKG done in your office demonstrated that he was in an irregular irregular heart rhythm and he was placed on Eliquis, Lasix, and potassium. He was also placed on diltiazem subsequently when his blood pressure was noted to be elevated. The dosages of the above have also been increased. He however continues to feel badly. Blood work that was done in October of this year demonstrated normal electrolytes and normal TSH and a normal hemoglobin. His BUN was mildly elevated. Chest x-ray demonstrated no significant abnormality. His physical exam does confirm an irregular irregular heart rate and his EKG today demonstrated atrial fibrillation with a rate of 135 bpm. Intake Vital Signs 07/30/24 16:28 01/10/25 14:50 Height 5 ft 8 in 5 ft 8 in Weight: 195 lb BMI 29.6 BP 144/99 H Blood Pressure Location Lt brachial Position Sitting Respiration 16 Pulse 138 H Pulse Source Monitor Intake Visit Reasons: LEONEL (ROSITA) Film Critic Required: No Accompanied by: Self Is patient in pain?: No Allergies No Known Allergies Allergy (Verified 01/10/25 15:01) Medications ???Medication ???Instructions ???Recorded ???Confirmed ???Type acetaminophen 650 mg 650 mg PO Q12H PRN knee pain 07/3001/10/25 History tablet,extended release (Tylenol Arthritis Pain) apixaban 5 mg tablet (Eliquis) 5 mg PO BID 12/15/24 01/10/25 Hist ory hydroxyzine pamoate 25 mg capsule 25 mg PO QHS 12/15/24 01/10/25 Hi story (Vistaril) atenolol 50 mg tablet 50 mg PO BID #60 tabs 01/10/25 Rx furosemide 40 mg tablet (Lasix) 40 mg PO QDAY 01/10/25 01/10/25 Hi story spironolactone 25 mg tablet 25 mg PO QDAY #30 tabs 01/10/25 Rx Have you fallen in the past year?: No PFSH Medical History (Updated 01/10/25 @ 15:[address] Skyler Greer MD) Afib Surgical History (Updated 12/15/24 @ 11:51 by Leny Mata RN) No history of previous surgery Family History (Updated 04/21/23 @ 07:30 by Reba Singh) Brother Myocardial infarction Cony Gehrig disease Social History (Updated 12/15/24 @ 11:47 by Leny Mata RN) household members: spouse Smoking Status: Former smoker torito/restorationism: Oneal ROS Const Const: Negative for fatigue, weakness, headache(s), daytime sleepiness or difficulty sleeping ENT ENT: Negative for headache(s), dizziness or Nosebleed/epistaxis Cardio Chest Pain: No Palpitations: Yes Edema: Bilateral (BLE) Resp Respiratory: Positive for SOB with activity and SOB orthopnea SOB lying down (states feels full of fluid); Negative for SOB at rest or Cough GI GI: Negative nausea, vomiting or heartburn Neuro Neuro: Negative for dizziness, lightheadedness, near syncope, headache(s) or weakness Endo Endo: Negative for fatigue Cardiology Exam Const Appearance: cooperative, healthy appearing, no acute distress, well developed and well groomed Nutritional Appearance: average body habitus and well nourished Orientation: alert, awake and oriented x3 Head Head: normal to inspection, normocephalic and atraumatic Ears: hearing grossly normal bilaterally and external ears normal Nose: external nose normal, nares normal, nasal mucous membranes and turbinates normal, septum normal and no nasal discharge Face and Sinus: face symmetric Mouth: oral mucosae normal, tongue normal, oropharynx normal and moist mucous membranes Teeth and gingiva: dentition normal Throat: posterior oropharynx normal, tonsils normal and uvula midline Eyes General: appearance normal, both eyes and all related structures Eyelids: eyelids normal Conjunctivae: conjunctivae normal Pupils: PERRL, normal by confrontation and accommodation normal EOM: EOM intact bilaterally Neck Neck: normal visual inspection, trachea midline and no JVD JVD: +5 Carotids: normal carotid upstroke and bounding pulses Chest Chest inspection: normal inspection of the chest, symmetric chest movement and normal respiratory effort Auscultation: Bilateral: Clear to Auscultation Cardio Palpation: normal PMI Rhythm: irregularly irregular Heart sounds: S1 normal, S2 normal and normal, physiologic split S2; Negative rub, gallop or murmur GI GI: normal to inspection, soft, no hepatosplenom (more content not included)... Normal [facility] 12 Lead EKGon 07-30-2024 12 Lead EKG [facility] Cardiovascular Services [address] [place] [address] 12 Lead EKG 07/30/24 1629 MR#: [id number] Acct: [id number] Name: AKASH RUTH Rep #: [id number] : 1950 74 From: Skyler Greer MD Attending Dr: Status: DEP ER Ordering Dr: Sahil Beaver Date: 07/30/24 Location: ED Sex: M C Admitted: Test Reason : CP Blood Pressure : */* mmHG Vent. Rate : 53 BPM Atrial Rate : 53 BPM P-R Int : 174 ms QRS Dur : 80 ms QT Int : 408 ms P-R-T Axes : 81 51 44 degrees QTcB Int : 382 ms Sinus bradycardia with marked sinus arrhythmia Otherwise normal ECG Confirmed by SKYLER GREER MD ([id number]), editor producer PATRICIA NICOLAS ([id number]) on 08/01/2024 8:04:50 AM Referred By: Confirmed By: SKYLER GREER MD 08/01/24 0804 Date Skyler Greer MD CC: TILE AND MARBLE SETTERNallelyC Sahil Beaver; Dr. Martin Clark MD; Dr. John Alvarez, DO Signed Normal [facility] Abdomen/Pelvis W IV Cont ONL Yon 07-30-2024 Abdomen/Pelvis W IV Cont ONLY [facility] Imaging Services [address] [place], [place] [address] Abdomen/Pelvis W IV Cont ONLY MR#: [id number] Acct: [id number] Name: AKASH RUTH Rep #: [id number] : 1950 M 74 From: Kem Tapia PCP: Dr. Martin Clark MD Status: REG ER Study: Abdomen/Pelvis W IV Cont ONLY Date of Exam: Exam# [id number] Ordering Dr: Sahil Beaver [id number] STUDY: CT Abdomen And Pelvis W/ Contrast Injection 07/30/2024 5:57 PM REASON FOR EXAM: Male, 74 years old. Abdominal pain abdominal pain Individualized dose optimization techniques were used for this CT. COMPARISON: 07.29.14. TECHNIQUE: CT Abdomen And Pelvis W/ Contrast Injection IV 100mL [id number] FINDINGS: There are atherosclerotic calcifications of visualized coronary arteries. The visualized portions of the heart are within normal limits. Normal liver. Normal gallbladder and extrahepatic biliary system. There are multiple benign calcified granulomata of the spleen. Normal pancreas. Normal bilateral adrenal glands. There are hypodensities in the right kidney. These are consistent for cysts. No follow up required. There are hypodensities in the left kidney. These are consistent for cysts. No follow up required. Normal visualized stomach. Normal small intestine. Stool throughout the colon. There is non-visualization of the appendix. There are calcifications of the abdominal aorta. This is consistent for atherosclerotic disease. There is NO abdominal aortic aneurysm. Vascular workup can be obtained based on clinical correlation. Normal inferior vena cava. Subcentimeter mesenteric lymph nodes. Urinary bladder wall has wall thickening. This can be related to a partially contractile state. However, a cystitis is not excluded. Urinalysis should be performed in an effort to exclude cystitis. There is an umbilical hernia containing fat. There are diffuse degenerative changes of the visualized lumbar spine. There is bilateral neural foraminal stenosis at L4-5 and L5-S1. CT/Abdomen/Pelvis W IV Cont ONLY IMPRESSION: (NOT LISTED IN ORDER OF SIGNIFICANCE) Urinary bladder wall has wall thickening. This can be related to a partially contractile state. However, a cystitis is not excluded. Urinalysis should be performed in an effort to exclude cystitis. Other findings as above. Electronically Signed: Kem Stahl MD at 18:00 EST , CC: BRUCE Beaver; Dr. Martin Clark MD Hotel Assistant General Manager: Signed Normal [facility] CBC W/Diff, Automatedon 12-0 Absolute Lymph 1.11 X10 3/uL Normal 0.83-4.51 [facility] Comment on above: Performed By: #### L 503.6005, L501.4020, L500.4050, L100.0100, L501.2450 #### [facility] [address] [place], [address] Absolute Neut 6.8 X10 3/uL Normal 2.0-7.7 [facility] Comment on above: Performed By: #### L 503.6005, L501.4020, L500.4050, L100.0100, L501.2450 #### [facility] [address] [place], [address] Basophils/100 WBC (Bld) 0.3 % Normal 0-1 [facility] Comment on above: Performed By: #### L 503.6005, L501.4020, L500.4050, L100.0100, L501.2450 #### [facility] [address] [place], [address] Eosinophils/100 WBC (Bld) 0.3 % Normal 0-5 [facility] Comment on above: Performed By: #### L 503.6005, L501.4020, L500.4050, L100.0100, L501.2450 #### [facility] [address] [place], [address] Erythrocyte distribution width (RBC) [Ratio] 13.8 % Normal 11.6-14.6 [facility] Comment on above: Performed By: #### L 503.6005, L501.4020, L500.4050, L100.0100, L501.2450 #### [facility] [address] [place], [address] Hematocrit (Bld) [Volume fraction] 41.8 % Normal 40-54 [facility] Comment on above: Performed By: #### L 503.6005, L501.4020, L500.4050, L100.0100, L501.2450 #### [facility] [address] [place], [address] Hemoglobin (Bld) [Mass/Vol] 13.9 g/dL Normal 13.0-16.5 [facility] Comment on above: Performed By: #### L 503.6005, L501.4020, L500.4050, L100.0100, L501.2450 #### [facility] [address] [place], [address] IG% 0.200 Normal 0.0-0.9 [facility] Comment on above: Result Comment: IG% - Immature Granulocytes (promyelocytes, myelocytes and metamyelocytes) > 1% indicates that a LEFT SHIFT is Present. Performed By: #### L 503.6005, L501.4020, L500.4050, L100.0100, L501.2450 #### [facility] [address] [place], [address] Lymphocytes/100 WBC (Bld) 12.6 % Low 19-41 [facility] Comment on above: Performed By: #### L 503.6005, L501.4020, L500.4050, L100.0100, L501.2450 #### [facility] [address] [place], [address] MCH (RBC) [Entitic mass] 31.8 pg Normal 27.0-32.0 [facility] Comment on above: Performed By: #### L 503.6005, L501.4020, L500.4050, L100.0100, L501.2450 #### [facility] [address] [place], [address] MCHC (RBC) [Mass/Vol] 33.3 g/dL Normal 32-36 [facility] Comment on above: Performed By: #### L 503.6005, L501.4020, L500.4050, L100.0100, L501.2450 #### [facility] [address] [place], [address] MCV (RBC) [Entitic vol] 95.7 fL High 80-94 [facility] Comment on above: Performed By: #### L 503.6005, L501.4020, L500.4050, L100.0100, L501.2450 #### [facility] [address] [place], [address] Monocytes/100 WBC (Bld) 9.7 % Normal 0-10 [facility] Comment on above: Performed By: #### L 503.6005, L501.4020, L500.4050, L100.0100, L501.2450 #### [facility] [address] [place], [address] Neutrophils/100 WBC (Bld) 76.9 % High 47-70 [facility] Comment on above: Performed By: #### L 503.6005, L501.4020, L500.4050, L100.0100, L501.2450 #### [facility] [address] [place], [address] Nucleated RBC (Bld) [#/Vol] 0 10*3/uL Normal 0-5 [facility] Comment on above: Performed By: #### L 503.6005, L501.4020, L500.4050, L100.0100, L501.2450 #### [facility] [address] [place], [address] Platelet mean volume (Bld) [Entitic vol] 9.7 fL Normal 6.2-12.0 [facility] Comment on above: Performed By: #### L 503.6005, L501.4020, L500.4050, L100.0100, L501.2450 #### [facility] [address] [place], [address] Platelets (Bld) [#/Vol] 269 10*3/uL Normal 150-450 [facility] Comment on above: Performed By: #### L 503.6005, L501.4020, L500.4050, L100.0100, L501.2450 #### [facility] [address] [place], [address] RBC (Bld) [#/Vol] 4.37 10*6/uL Low 4.6-6.2 [facility] Comment on above: Performed By: #### L 503.6005, L501.4020, L500.4050, L100.0100, L501.2450 #### [facility] [address] [place], [address] RDW SD 49.1 fl High 35.1-43.9 [facility] Comment on above: Performed By: #### L 503.6005, L501.4020, L500.4050, L100.0100, L501.2450 #### [facility] [address] [place], [address] WBC (Bld) [#/Vol] 8.8 10*3/uL Normal 4.4-11.0 [facility] Comment on above: Performed By: #### L 503.6005, L501.4020, L500.4050, L100.0100, L501.2450 #### [facility] [address] [place], [address] Chest 1 View (Portable)on Chest 1 View (Portable) [facility] Imaging Services [address] [place] [address] Chest 1 View (Portable) MR#: [id number] Acct: [id number] Name: AKASH RUTH Rep #: [id number] : 1950 M 74 From: Kem Tapia PCP: Dr. Martin Clark MD Status: REG ER Study: Chest 1 View (Portable) Date of Exam: 07/30/24 Exam# [id number] Ordering Dr: Sahil Beaver [id number] STUDY: XR Chest 1 View 07/30/2024 6:21 PM REASON FOR EXAM: Male, 74 years old. cough COMPARISON: 1.2.20 TECHNIQUE: XR Chest 1 View FINDINGS: There is no demonstrated pleural abnormality. Normal heart size. Normal mediastinum. Normal adwoa. Prominent appearing increased interstitial lung markings. Normal visualized pulmonary arteries. There is atherosclerotic calcification of the aortic arch with tortuosity. There are diffuse degenerative changes of the visualized thoracic spine. There is degenerative osteoarthritis of the bilateral shoulders. There are no acute findings of the upper abdomen. RAD/Chest 1 View (Portable) IMPRESSION: There are no acute findings. Electronically Signed: Kem Stahl MD at 19:01 EST Reading Location ID and State: [facility] / [place] , Service support , CC: BRUCE Beaver; Dr. Martin Clark MD Hotel Assistant General Manager: Signed Normal [facility] Comprehensive Metabolic Prof ilon 07-30-2024 Albumin [Mass/Vol] 3.6 g/dL Normal 3.2-5.0 [facility] Comment on above: Order Comment: 'TROP ' Serial specimen #1, #2 or #3: 1 Performed By: #### L 503.2416, L501.4020, L500.4050, L100.0100, L501.2450 #### [facility] [address] [place], [address] Albumin/Globulin [Mass ratio] 1.0 {ratio} Normal 0.9-2.4 [facility] Comment on above: Order Comment: 'TROP ' Serial specimen #1, #2 or #3: 1 Performed By: #### L 503.6005, L501.4020, L500.4050, L100.0100, L501.2450 #### [facility] [address] [place], [address] ALK P 57 U/L Normal 45-117 [facility] Comment on above: Order Comment: 'TROP ' Serial specimen #1, #2 or #3: 1 Performed By: #### L 503.6005, L501.4020, L500.4050, L100.0100, L501.2450 #### [facility] [address] [place], [address] ALT [Catalytic activity/Vol] 32 U/L Normal 16-61 [facility] Comment on above: Order Comment: 'TROP ' Serial specimen #1, #2 or #3: 1 Performed By: #### L 503.6005, L501.4020, L500.4050, L100.0100, L501.2450 #### [facility] [address] [place], [address] AST [Catalytic activity/Vol] 27 U/L Normal 15-37 [facility] Comment on above: Order Comment: 'TROP ' Serial specimen #1, #2 or #3: 1 Performed By: #### L 503.6005, L501.4020, L500.4050, L100.0100, L501.2450 #### [facility] [address] [place], [address] Bilirubin [Mass/Vol] 1.10 mg/dL High 0.20-1.00 [facility] Comment on above: Order Comment: 'TROP ' Serial specimen #1, #2 or #3: 1 Result Comment: For patients on eltrombopag therapy, use of Dimension Randolph TBIL is not recommended. Performed By: #### L 503.6005, L501.4020, L500.4050, L100.0100, L501.2450 #### [facility] [address] [place], [address] BUN/CRE 27.1 RATIO High 10-20 [facility] Comment on above: Order Comment: 'TROP ' Serial specimen #1, #2 or #3: 1 Performed By: #### L 503.6005, L501.4020, L500.4050, L100.0100, L501.2450 #### [facility] [address] [place], [address] CA,Total 9.0 mg/dL Normal 8.5-10.1 [facility] Comment on above: Order Comment: 'TROP ' Serial specimen #1, #2 or #3: 1 Performed By: #### L 503.6005, L501.4020, L500.4050, L100.0100, L501.2450 #### [facility] [address] [place], [address] Chloride [Moles/Vol] 105 mmol/L Normal 98-107 [facility] Comment on above: Order Comment: 'TROP ' Serial specimen #1, #2 or #3: 1 Performed By: #### L 503.6005, L501.4020, L500.4050, L100.0100, L501.2450 #### [facility] [address] [place], [address] CO2 [Moles/Vol] 25.0 mmol/L Normal 21.0-32.0 [facility] Comment on above: Order Comment: 'TROP ' Serial specimen #1, #2 or #3: 1 Performed By: #### L 503.6005, L501.4020, L500.4050, L100.0100, L501.2450 #### [facility] [address] [place], [address] Creatinine [Mass/Vol] 0.96 mg/dL Normal 0.70-1.30 [facility] Comment on above: Order Comment: 'TROP ' Serial specimen #1, #2 or #3: 1 Result Comment: The validity of the calculated GFR GFRAA in patients over 70 years has not been determined. Clinical correlation is essential. Performed By: #### L 503.6005, L501.4020, L500.4050, L100.0100, L501.2450 #### [facility] [address] [place], [address] ECRCL 69.85 ml/min Normal [facility] Comment on above: Order Comment: 'TROP ' Serial specimen #1, #2 or #3: 1 Performed By: #### L 503.6005, L501.4020, L500.4050, L100.0100, L501.2450 #### [facility] [address] [place], [address] EST GFR - AA 98 mL/min Normal >60 [facility] Comment on above: Order Comment: 'TROP ' Serial specimen #1, #2 or #3: 1 Result Comment: Afri can Austrian GFR Calc Performed By: #### L 503.6005, L501.4020, L500.4050, L100.0100, L501.2450 #### [facility] [address] [place], [address] GAP 7 Normal 5-15 [facility] Comment on above: Order Comment: 'TROP ' Serial specimen #1, #2 or #3: 1 Performed By: #### L 503.6005, L501.4020, L500.4050, L100.0100, L501.2450 #### [facility] [address] [place], [address] GFR/1.73 sq M.predicted among non-blacks MDRD (S/P/Bld) [Vol rate/Area] 81 mL/min/{1.73_m2} Normal >60 [facility] [facility] Comment on above: Order Comment: 'TROP ' Serial specimen #1, #2 or #3: 1 Result Comment: Non- GFR Calc Performed By: #### L 503.6005, L501.4020, L500.4050, L100.0100, L501.2450 #### [facility] [address] [place], [address] Globulin (S) [Mass/Vol] 3.5 g/dL Normal 2.2-4.2 [facility] Comment on above: Order Comment: 'TROP ' Serial specimen #1, #2 or #3: 1 Performed By: #### L 503.6005, L501.4020, L500.4050, L100.0100, L501.2450 #### [facility] [address] [place], [address] Glucose [Mass/Vol] 123 mg/dL High 74-106 [facility] Comment on above: Order Comment: 'TROP ' Serial specimen #1, #2 or #3: 1 Result Comment: Fast ing Glucose result from 100 to 125 mg/dL suggests IMPAIRED HOMEOSTASIS per A.D.A. criteria. Performed By: #### L 503.6005, L501.4020, L500.4050, L100.0100, L501.2450 #### [facility] [address] [place], [address] Potassium [Moles/Vol] 3.9 mmol/L Normal 3.5-5.1 [facility] Comment on above: Order Comment: 'TROP ' Serial specimen #1, #2 or #3: 1 Performed By: #### L 503.6005, L501.4020, L500.4050, L100.0100, L501.2450 #### [facility] [address] [place], [address] Sodium [Moles/Vol] 137 mmol/L Normal 136-145 [facility] Comment on above: Order Comment: 'TROP ' Serial specimen #1, #2 or #3: 1 Performed By: #### L 503.6005, L501.4020, L500.4050, L100.0100, L501.2450 #### [facility] [address] [place], [address] T PROT 7.1 g/dL Normal 6.4-8.2 [facility] Comment on above: Order Comment: 'TROP ' Serial specimen #1, #2 or #3: 1 Performed By: #### L 503.6005, L501.4020, L500.4050, L100.0100, L501.2450 #### [facility] [address] [place], [address] Urea nitrogen [Mass/Vol] 26 mg/dL High 7-18 [facility] Comment on above: Order Comment: 'TROP ' Serial specimen #1, #2 or #3: 1 Performed By: #### L 503.6005, L501.4020, L500.4050, L100.0100, L501.2450 #### [facility] [address] [place], [address] Emergency Department Summary on 07-30-2024 Emergency Department Summary [facility] Medical Records Department [address] [place] [address] Emergency Department Summary 07/30/24 MR#: [id number] Acct: [id number] Name: AKASH RUTH Rep #: [id number] : 1950 74 From: John Alvarez DO PCP: Dr. Martin Clark MD Status:DEP ER Location: ED HPI History of Present Illness Chief Complaint: Chest Pain Narrative Narrative: Patient 74-year-old male who currently does not see a doctor regular basis presenting to the emerged department with complaints of generalized abdominal discomfort, bloating, chest pressure. Patient states this has been ongoing for the last several years. He does have history of bowel obstruction. Denies any surgical history. Patient states over the last couple days has been having worsening belly pain, constipation as well as some bloating. He states that sometimes the pain goes up into his chest as a pressure. He did have a bowel movement around 11:00 today after an enema however states the pain returned and is here for evaluation. [facility] Medical History (Updated 07/30/24 @ 19:16 by BRUCE Brito) Knee arthropathy Former smoker Wears dentures Wears glasses Home Medications ???Medication ???Instructions ???Recorded ???Last Taken ???Type acetaminophen 650 mg 650 mg PO Q12H PRN knee pain 07/30/24 Unknown History tablet,extended release (Tylenol Arthritis Pain) pantoprazole 40 mg tablet,delayed 40 mg PO DAILY #30 tabs 07/30/24 Unknown Rx release (Protonix) Allergy/AdvReac Type Severity Reaction Status Date / Time No Known Allergies Allergy Verified 07/30/24 16:32 Family History (Updated 04/21/23 @ 07:30 by Reba Singh) Brother Myocardial infarction Cony Gehrig disease Social History household members: spouse Smoking Status: Unknown if ever smoked torito/restorationism: Oneal ROS ROS ED ROS Narrative Constitutional: Negative for fever, chills, weight loss, weakness Eyes: Negative for vision loss, vision change, double vision ENT: Negative for any sore throat, ear pain, congestion Cardiovascular: Negative for any chest pain, tightness, palpitations. Positive chest pressure Respiratory: Negative for any cough, sputum production, hemoptysis, dyspnea, dyspnea on exertion, orthopnea Gastrointestinal: Negative for any vomiting, diarrhea, constipation, blood in stool, blood in vomit. Positive abdominal pain, abdominal bloating : Negative for any urinary frequency, dysuria, retention, blood in urine Muscle skeletal: Negative for any neck pain, back pain Neurological: Negative for any headache, syncope, dizziness Skin: Negative for any rashes, itching, abrasions, lacerations Psychiatric: Negative for any depression, anxiety, stress, suicidal ideation, homicidal ideation Hematologic: Negative for any excessive bruising, easy bleeding EXAM Physical Exam Narrative Exam Narrative: Vital signs reviewed. HEET: Head normocephalic atraumatic, TMs clear bilaterally. Posterior pharynx is clear, moist mucous membranes. Nares clear bilaterally. Neck: Supple with no lymphadenopathy or tenderness. No signs of meningismus. Cardiac: Regular rate and rhythm no murmurs gallops or rubs, equal peripheral pulses bilaterally. Respiratory: Lungs clear to auscultation bilaterally. No chest tenderness. Abdomen: Soft, nontender, nondistended. No abdominal bruit or pulsatile masses. No hepatosplenomegaly. No peritoneal signs. Active bowel sounds in all quadrants. Extremities: No peripheral edema, no signs of gross trauma or deformity. Active full range of motion of all extremities. Neuro: Cranial nerves II through XII intact, no focal neurological deficits. Skin: Clean dry and intact with no rash, purpura, petechiae, vesicles or pustules. Backs/flank: No CVA tenderness, no midline spinal tenderness, no deformity. Psych: Normal mood and affect. No SI, HI or acute psychosis. Const Vital Signs: 07/30/24 16:25 07/30/24 16:28 07/30/24 16:32 Temperature 98.5 F Temperature Source Oral Pulse Rate 59 L Respiratory Rate 13 Respiratory Effort Normal Non-Labored Blood Pressure 190/87 H 188/84 H Blood Pressure Mean 121 118 Pulse Ox 99 Oxygen Delivery Method Room Air 07/30/24 17:25 07/30/24 18:00 07/30/24 19:00 Temperature Temperature Source Pulse Rate 72 78 54 L Respiratory Rate 18 19 H 12 Respiratory Effort Blood Pressure 159/47 H 133/64 H 172/81 H Blood Pressure Mean 84 87 111 Pulse Ox 96 98 98 Oxygen Delivery Method Room Air Room Air Room Air 07/30/24 19:30 Temperature 97.8 F Temperature Source Pulse Rate 64 Respiratory Rate 16 Respiratory Effort Blood Pressure 163/80 H Blood Pressure Mean 107 Pulse Ox 99 Oxygen Delivery Method (more content not included)... Normal [facility] L501.4020on 07-30-2024 TROPONIN-I HS 10 pg/mL Normal 3.0-78.0 [facility] Comment on above: Order Comment: 'TROP ' Serial specimen #1, #2 or #3: 2 Result Comment: Michoacano aguero Note: New Test Units and Gender Specific Reference Ranges. For more information see Policy Stat Procedure Randolph High Sensitivity Troponin (TNIH) and attachments. Performed By: #### L 501.4020 #### [facility] [place], [address] TROPONIN-I HS 7 pg/mL Normal 3.0-78.0 [facility] Comment on above: Order Comment: 'TROP ' Serial specimen #1, #2 or #3: 1 Result Comment: Plea se Note: New Test Units and Gender Specific Reference Ranges. For more information see Policy Stat Procedure Randolph High Sensitivity Troponin (TNIH) and attachments. Performed By: #### L 503.6005, L501.4020, L500.4050, L100.0100, L501.2450 #### [facility] [address] [place], [address] Lactic Acidon 07-30-2024 Lactate [Moles/Vol] 0.9 mmol/L Normal 0.4-1.9 [facility] Comment on above: Order Comment: Y Performed By: #### L 503.6005, L501.4020, L500.4050, L100.0100, L501.2450 #### [facility] [address] [place], [address] Lipaseon 07-30-2024 Lipase [Catalytic activity/Vol] 48 U/L Normal 13-75 [facility] Comment on above: Order Comment: 'TROP ' Serial specimen #1, #2 or #3: 1 Result Comment: Michoacano aguero note: LIPASE revised reference range effective 22. New Lipase methodology. Expected to produce lower values than the previous assay method. NEW Reference Range: 13 - 75 U/L Performed By: #### L 503.6005, L501.4020, L500.4050, L100.0100, L501.2450 #### [facility] [address] [place], [address] Urinalysis, Completeon 07-30 Mucus Ql (Urine sed) 1+ /hpf Normal [facility] Comment on above: Order Comment: COLLE CTOR TO SPECIFY Performed By: #### L 400.0001 #### [facility] [address] [place], [address] EPI,SQUAMOUS 0-5 SEEN Normal 0-5 [facility] Comment on above: Order Comment: COLLE CTOR TO SPECIFY Performed By: #### L 400.0001 #### [facility] [address] [place], [address] RBC 0-5 SEEN Normal 0-5 [facility] Comment on above: Order Comment: COLLE CTOR TO SPECIFY Performed By: #### L 400.0001 #### [facility] [address] [facility] [address] WBC 0-5 SEEN Normal 0-5 [facility] Comment on above: Order Comment: COLLE CTOR TO SPECIFY Performed By: #### L 400.0001 #### [facility] [address] [place], [address] BACTERIA 0 SEEN Normal None Seen [facility] Comment on above: Order Comment: COLLE CTOR TO SPECIFY Performed By: #### L 400.0001 #### [facility] [address] [facility] [address] Vital Signs Date Time Vital Sign Value Performing Clinician Aurora kinsey 01-10-2025 14:50-0400 Body height 172.[address] Martin Clark DO Work Phone: [facility] 01-10-2025 14:50-0400 Body mass index (BMI) [Ratio] 29.6 kg/m2 Dr. Martin Clark DO Work Phone: [facility] 01-10-2025 14:50-0400 Body weight 88.[address] Martin Clark DO Work Phone: [facility] 01-10-2025 14:50-0400 Diastolic blood pressure 99 mm[Hg] Dr. Martin Clark DO Work Phone: [facility] 01-10-2025 14:50-0400 Heart rate 138 /min Dr. Martin Clark DO Work Phone: [facility] 01-10-2025 14:50-0400 Respiratory rate 16 /min Dr. Martin Clark DO Work Phone: 3(554)083-516856 [place] [address] 01-10-2025 14:50-0400 Systolic blood pressure 144 mm[Hg] Dr. Martin Clark DO Work Phone: 0(013)608-453756 [place] [address] 04-21-2023 08:45-0400 Body temperature 97.4 [degF] Dr. Martin Clark Work Phone: 4(035)471-417656 [place] [address] 04-21-2023 08:45-0400 Diastolic blood pressure 76 mm[Hg] Dr. Martin Clark Work Phone: 4(085)247-487856 [place] [address] 04-21-2023 08:45-0400 Heart rate 62 /min Dr. Martin Clark Work Phone: 8(166)691-626156 [place] [address] 04-21-2023 08:45-0400 Respiratory rate 16 /min Dr. Martin Clark Work Phone: 6(382)814-137356 [place] [address] 04-21-2023 08:45-0400 SaO2% (BldA) [Mass fraction] 100 % Dr. Martin Clark Work Phone: 1(574)415-346956 [place] [address] 04-21-2023 08:45-0400 Systolic blood pressure 125 mm[Hg] Dr. Martin Clark Work Phone: 7(869)327-624456 [place] [address] 04-21-2023 07:31-0400 Body height 172.[address] Martin Clark Work Phone: 5(757)143-627656 [place] [address] 04-21-2023 07:31-0400 Body mass index (BMI) [Ratio] 27.9 kg/m2 Dr. Martin Clark Work Phone: 5(799)762-683956 [place] [address] 04-21-2023 07:31-0400 Body weight 83.[address] Martin Clark Work Phone: 0(505)724-023656 [place] [address] 03-12-2023 11:34-0400 Body mass index (BMI) [Ratio] 28.1 kg/m2 Dr. Martin Clark Work Phone: 2(058)378-057656 [place] [address] 03-12-2023 11:34-0400 Body weight 83.[address] Martin Clark Work Phone: [facility] Encounters Encounter Date Encounter Type Care Provider Facility Start: 02-15-2025 ambulatory Martin Clark Facility:[facility] Start: 01-10-2025 End: 01-10-[address] Skyler Greer MD -[facility] Work Phone: Start: 01-10-2025 End: 01-10-[address] Martin Clark DO Work Phone: [facility] Work Phone: Start: 07-30-2024 End: 07-30-2024 Emergency department patient visit Johnmike Alvarez Facility:[facility] Start: 04-21-2023 Non-patient / Non-visit Dr. Zoila Clark Work Phone: [facility] Start: 04-21-2023 End: 04-21-2023 Admission to same day surgery center Dr. Martin Clark Work Phone: [facility] Work Phone: Start: 04-21-2023 End: 04-21-[address] Martin Clark Work Phone: [facility] Work Phone: Start: 03-12-2023 Non-patient / Non-visit Dr. Zoila Clark Work Phone: [facility] Work Phone: Procedures Date Procedure Procedure Detail Performing Clinician Start: 04-21-[address] Martin Clark Work Phone: Plan of Treatment Date Care Activity Detail Author Start: 01-10-2025 Evaluation of diagno stic study results [facility] Start: 04-21-2023 Patient discharge [facility] Patient referral [facility] Work Phone: Payers Date Payer Category Payer Self-pay [id number] 2024 Unknown [id number] Unknown [id number] Unknown [id number] Unknown [id number] Social History Date Type Detail Facility Start: 04-21-2023 Tobacco smoking stat [facility] Unknown if ever smoked [facility] Start: 1950 Sex Assigned At Male [facility] Start: 12-15-2024 Tobacco smoking stat [facility] Ex-smoker (finding) [facility] Goals Date Patient Goal Desired Activity /State Mental Status Date Assessment Result Facility 04-21-2023 Cognitive function Voice/Name [facility] Work Phone: Procedure note 04-21-2023 Note Date & Type Note Facility 04-21-2023 Procedure note [facility] Procedure note 04-21-2023 Note Date & Type Note Facility 04-21-2023 Procedure note [facility] Evaluation note Note Date & Type Note Facility Evaluation note Diagnosis Onset Date Encounter for screening for malignant neoplasm of colon acute [facility] Work Phone: Evaluation note Note Date & Type Note Facility Evaluation note No assessment information availa [facility] Work Phone: History and physical note Note Date & Type Note Facility History and physical note Note Date/Time April 21, 2023 7:54am [facility] Medical Records Department [address] [place] [address] History & Physical Exam 04/21/23 0753 MR#: [id number] Acct: [id number] Name: FLORYCHRISTOPHERManuelito Murrieta Rep #:[id number] : 1950 72 From: Giles Friend DO PCP: Dr. Martin Clark MD Status:REG S DC Location: [place] [address]-1 HPI - General General Date of Admission: 04/21/23 Date of Service: 04/21/23 Chief Complaint: Screening colonoscopy HPI Vidya RUTH, is a 72 M who presents here for screening colonoscopy. He has no significant past medical history. He has not had a colonoscopy in the past. Hedoes not have any abdominal pain, cramping or diarrhea. He is no signs or symptoms of lower GI bleeding. His weight has been stable. Is no family history of colon polyps or colon malignancy. [facility] Medical History (Updated 04/21/23 @ 07:42 by Reba Singh) Former smoker Knee arthropathy Wears dentures Wears glasses Home Medications NK 08/24/19 [History Last Taken Unknown] Allergy/AdvReac Type Severity Reaction Status Date / Time No Known Allergies Allergy Verified 03/12/23 11:31 Family History (Updated 04/21/23 @ 07:30 by Reba Singh) Brother Myocardial infarction Cony Gehrig disease Social History household members: spouse Smoking Status: Unknown if ever smoked torito/restorationism: Oneal ROS Review of Systems ROS Unobtainable: other Constitutional Constitutional: Denies fatigue, fever(s), poor appetite, weight gain or weight loss ENT HEENT: Denies mouth lesions Cardiovascular Cardiovascular: Denies abdominal bloating, abdominal edema or abdominal pain Respiratory/Chest Respiratory/Chest: Denies change in mental status, change in phlegm color, chestcongestion or chest tightness Gastrointestinal Gastrointestinal: Denies belching, bloating, change in bowel habits, change in stool character, chewing difficulty, coffee ground emesis, constipation, cramping, diarrhea, dyspepsia, dysphagia, early satiety, excessive flatus, fecalincontinence, heartburn, hematemesis, hematochezia, hemorrhoids, loose stools, melena, nausea, odynophagia, rectal bleeding, tenesmus, vomiting or weight changes Genitourinary Genitourinary: Denies abdominal discomfort, burning urination or itching Musculoskeletal Musculoskeletal: Reports as per HPI; Denies muscle weakness or myalgias Integumentary Integumentary: Denies jaundice Neurologic Neurologic: Denies lack of coordination or weakness Psychiatric Psychiatric: Denies confusion, depression, memory loss, mood swings, paranoia orsuicidal ideation Endocrine Endocrinology: Denies systems reviewed and no addt'l complaints, except as documented Hematologic/Lymphatic Hematologic/Lymphatic: Denies anemia, easy bleeding, easy bruising or lymphadenopathy Allergic/Immunologic Allergic/Immunologic: Denies systems reviewed and no addt'l complaints, except as documented Vital Signs Vital Signs Vital Signs: 04/21/23 07:31 04/21/23 07:31 Temperature 98.5 F Temperature Source Temporal Pulse Rate 56 L Respiratory Rate 18 Respiratory Pattern Normal Blood Pressure 135/73 H Blood Pressure Mean 93 Blood Pressure Source Monitor Blood Pressure Position Semi-Fowlers Blood Pressure Location Left Arm Pulse Ox 95 Oxygen Delivery Method Room Air Weight Weight: 184 lb Body Mass Index (BMI) 27.9 Physical Exam Const alert General Appearance: cooperative Orientation / Consciousness: oriented to person HEENT hearing grossly normal bilaterally Head and Scalp: normal to inspection Face and Sinus: face symmetric Nose: external nose normal Mouth: oral and palatal mucosa normal Eyes conjunctivae normal General Eye: normal appearance of both eyes Neck full ROM General: normal visual inspection Lymph Lymphatic: no lymphadenopathy noted Chest inspection of chest normal and palpation of chest normal Chest: symmetrical chest wall rise Resp normal respiratory effort Effort and Inspection: able to speak in complete sentences Cardio regular rate GI non-distended Percussion: normal to percussion Rectal Exam: deferred Neuro Speech: speech normal Gait (Neuro): normal gait Assessment & Plan Assessment/Plan (1) Encounter for screening for malignant neoplasm of colon: PLAN: He was explained alternatives, risk, benefits including not withstanding bleeding, infection, sepsis, perforation, need for emergent surgery . He will have an ASA of 2. 04/21/23 0754 <Electronically signed by Giles Jensen DO> Cosigner Signature (if applicable): CC: Dr. Martin Clark MD; Giles Jensen DO~ Signed [facility] Work Phone: Reason for referral (narrative) Note Date & Type Note Facility Reason for referral (narrative) No reason for referral information available [facility] Work Phone: Chief Complaint and Reason for Visit Chief Complaint Amb Documentation Reason for Visit Encounter for screen ing for malignant neoplasm of colon Chief Complaint Admit Date EST (ROSITA) January 10, 2025 2:34p m Family History No Family History Records Found Relationship Condition Age at Onset Recorded Date/T luca brother Myocardial infarction Unknown Amyotrophic lateral sclerosis Unknown Advance Directives No Advanced Directives Records Found Advance Directive Response Recorded Date/ Time Living Will No April 21 3 7:36am Power of Engraved Roller Inspector No April 21 023 7:36am Summary Purpose Additional Source Comments Care Teams (unrecognized sec tion and content) Team Status: Active Member Role Status Dates Dr. Martin Clark DO Family Provider Active Dr. Martin Clark DO Primary Care Provider Active Team Status: Active Member Role Status Dates Dr. Martin Clark DO Primary Care Provider Active [facility] Attending Provider Active Team Status: Active Member Role Status Dates Dr. Martin Clark DO Primary Care Provider, Referring Provider Active Dr. Giles Jensen DO Attending Provider, Other Prov ider Active Team Status: Inactive Member Role Status Dates Dr. Martin Clark DO Primary Care Provider, Referring Provider Active Dr. Giles Jensen DO Attending Provider Active Team Status: Inactive Member Role Status Dates Dr. Martin Clark DO Primary Care Provider Active Start: January 10, 2025 End: January 10, 2025 Dr. Martin Clark DO Referring Provider Active Start: January 10, 2025 End: January 10, 2025 Dr. Skyler Greer MD Attending Provider Active S tart: January 10, 2025 End: January 10, 2025 Goals (unrecognized section and content) Goals may be documented in a n alternate section (unrecognized sect ion and content) No Status Records Found INFORMATION SOURCE (unrecogn ized section and content) DATE CREATED AUTHOR 02/04/2025 [facility] FOR RECORDS PERTAINING TO PATIENTS WHO ARE OR HAVE BEEN ENROLLED IN A CHEMICAL DEPENDENCY/SUBSTANCEABUSE PROGRAM, SOME INFORMATION MAY BE OMITTED. This clinical summary was aggregated from multiple sources. Caution should be exercised in using it in the provision of clinical care. This summary normalizes information from multiple sources, and as a consequence, information in this document may materially change the coding, format and clinical context of patient data. In addition, data may be omitted in some cases. CLINICAL DECISIONS SHOULD BE BASED ON THE PRIMARY CLINICAL RECORDS. [employer] provides no warranty or guarantee of the accuracy or completeness of information in this document.
== END | disposition home or self-care (01) ==
LOC: CVS 08:30
PROVIDERS: PCP Family Medicine; Referring Provider Internal Medicine Cardiovascular Disease; Visit Provider Internal Medicine Cardiovascular Disease
DX: I48.91 Unspecified atrial fibrillation (principal)
CPT/HCPCS: 93306

== ENCOUNTER → 2025-03-05 | Outpatient (CLI) | payer OTHER, SELFPAY | END | disposition home or self-care (01) | LOC: PSN 07:55 | PROVIDERS: PCP Family Medicine; Referring Provider Student in an Organized Health Care Education/Training Program; Visit Provider Student in an Organized Health Care Education/Training Program | DX: I48.91 Unspecified atrial fibrillation (principal) | CPT/HCPCS: 93225; 93226 ==

== ENCOUNTER 2025-03-13 14:26 | Outpatient (CLI) | payer OTHER, SELFPAY ==
[2025-03-13 16:31] LABS: Anion Gap 13 (5-15); BUN 33 mg/dL (4-19); BUN/Creat Ratio 22.9 RATIO (10-20); Calcium,Total 9.2 mg/dL (7.6-11.0); Carbon Dioxide 23.5 mmol/L (21.0-32.0); Chloride 103 mmol/L (98-108); Glucose 105 mg/dL (70-99); Potassium 5.0 mmol/L (3.3-5.1)
== END 2025-03-13 23:59 | disposition home or self-care (01) ==
LOC: LAB 14:27
PROVIDERS: PCP Family Medicine; Referring Provider Internal Medicine Cardiovascular Disease; Visit Provider Internal Medicine Cardiovascular Disease
DX: I11.0 Hypertensive heart disease with heart failure (principal); I50.9 Heart failure, unspecified; I48.91 Unspecified atrial fibrillation
CPT/HCPCS: 36415; 80048

== ENCOUNTER → 2025-06-26 | Outpatient (CLI) | payer OTHER, SELFPAY ==
[2025-06-26 14:13] LABS: Anion Gap 10 (5-15); BUN 32 mg/dL (4-19); BUN/Creat Ratio 20.2 RATIO (10-20); Calcium,Total 9.0 mg/dL (7.6-11.0); Carbon Dioxide 27.0 mmol/L (21.0-32.0); Chloride 102 mmol/L (98-108); Glucose 138 mg/dL (70-99); Potassium 4.6 mmol/L (3.3-5.1)
== END | disposition home or self-care (01) ==
LOC: LAB 12:44
PROVIDERS: PCP Family Medicine; Referring Provider Nurse Practitioner Family; Visit Provider Nurse Practitioner Family
DX: R06.02 Shortness of breath (principal); I50.9 Heart failure, unspecified; I48.91 Unspecified atrial fibrillation
CPT/HCPCS: 36415; 80048

== ENCOUNTER → 2025-07-10 | Outpatient (CLI) | payer OTHER, SELFPAY ==
[2025-07-10 17:56] LABS: Anion Gap 11 (5-15); BUN 37 mg/dL (4-19); BUN/Creat Ratio 26.3 RATIO (10-20); Calcium,Total 9.0 mg/dL (7.6-11.0); Carbon Dioxide 23.2 mmol/L (21.0-32.0); Chloride 100 mmol/L (98-108); Glucose 113 mg/dL (70-99); Potassium 4.8 mmol/L (3.3-5.1)
== END | disposition home or self-care (01) ==
LOC: LAB 16:17
PROVIDERS: PCP Family Medicine; Referring Provider Internal Medicine Cardiovascular Disease; Visit Provider Internal Medicine Cardiovascular Disease
DX: I10 Essential (primary) hypertension (principal); I48.91 Unspecified atrial fibrillation
CPT/HCPCS: 36415; 80048

== ENCOUNTER 2025-08-02 10:25 | Day surgery (SDC) | payer SELFPAY, OTHER ==
[2025-08-01 08:39] VITALS: BMI 29.2
--- NOTE | 2025-08-02 11:18 | PRO.PCM_ITS ---
Bedside Procedural Bedside Procedure Information Date of Procedure: 08/02/25 Pre-Procedure Diagnosis: Atrial fibrillation Post-Procedure Diagnosis: Atrial fibrillation Procedure Performed:: DC cardioversion mill hand plate mill: No Procedure Time Out: : Procedure Start Time: : Procedure Stop Time: :10 Special Medications: Intravenous etomidate 6 mg Description of procedure: Patient was brought to cardiac catheterization lab in the postabsorptive nonsedated state. Informed consent was obtained. The patient was seen by Dr. Francois of the critical care division. Informed consent was obtained. Anterior- posterior pads were applied. 6 mg of intravenous etomidate was administered. 200 J of biphasic DC cardioversion energy were applied with prompt reversal to sinus rhythm. Patient tolerated the procedure well. Procedure findings: Successful DC cardioversion from atrial fibrillation to sinus rhythm. Follow-up as per office protocol.
--- NOTE | 2025-08-02 11:40 | PCM.OP.PRO2 ---
Procedures Pulmonary Pulmonary Procedures /Diagnostic Testin Con Sedation Bedside Procedural Bedside Procedure Information Date of Procedure: 08/02/25 Description of procedure: CONSCIOUS SEDATION REPORT DATE OF SERVICE: August 02, 2025 BRIEF HISTORY OF PRESENT ILLNESS: The patient is a 75-year-old male who presented to [facility] to undergo an elective outpatient cardioversion due to underlying atrial fibrillation. The patient has never previously undergone a cardioversion. He denied any history of any anesthetic complications. The patient is systemically anticoagulated on Eliquis. His last surface echocardiogram demonstrated an ejection fraction of 40%. PHYSICAL EXAMINATION: VITAL SIGNS: Reviewed and were acceptable. GENERAL: The patient is a male, in no apparent distress, speaking in full sentences. HEENT: Normocephalic, atraumatic. Mucous membranes are moist and pink. Good mouth opening noted. Trachea is midline. Good neck mobility. CHEST: S1, S2 irregularly irregular. No murmurs, rubs or gallops were noted. LUNGS: Clear to auscultation bilaterally without appreciable wheezes, rales or rhonchi. ABDOMEN: Soft, nontender, nondistended. Positive bowel sounds. EXTREMITIES: There is no clubbing, cyanosis or edema. ASA Class: II DESCRIPTION OF PROCEDURE: After confirmation of informed consent, the patient's anesthesia plan was reviewed in detail. Etomidate was chosen. Risks and benefits were reviewed and the patient agreed to proceed. At 1106, the patient was given 6 mg of etomidate. The patient achieved an appropriate level of sedation and was given a 200 joule synchronized cardioversion by Dr. Greer at the bedside. This was successful in achieving normal sinus rhythm. The patient was monitored until 1121, at which time he reached his baseline mental status and function. The patient tolerated the procedure well. COMPLICATIONS: None ESTIMATED BLOOD LOSS: None RECOMMENDATIONS: Okay to recover in usual fashion.
--- OUTSIDE RECORDS SUMMARY | 2025-08-02 12:50 | XMS RPT_ITS | CCD ---
Author Organization [facility] Care Team Providers Care Grader Patrol Name Role Phone Dr. Martin Clark Primary Care Provider Aliya Cruz Attending Provider Unavailable Dr. Martin Clark Referring Provider Friend, Dr. Skaggs Attending Provider [phone] FriendDr. Skaggs Other Provider Dr. Martin Clark DO Primary Care Provider Dr. Martin Clark DO Referring Provider Percy ALCAZAR, Dr. Holland Attending Provider Dr. Skyler Greer MD Referring Provider Ashvin Gong Attending Provider Ashvin Gong Referring Provider [phone] Amber, Martin Primary Care Unavailable Roof IC DESIGNER CUSTOM, Guille H Attending Unavailable Roof IC DESIGNER CUSTOM, Guille H Referring Unavailable Percy, Skyler Attending Unavailable Amber, Martin Primary Care Unavailable Amber, Martin Referring Unavailable Percy, Salter Path Attending Unavailable Amber, Martin Primary Care Unavailable Ashvin Guillermo Referring Unavailable Amber, Martin Primary Care Unavailable Percy, Salter Path Attending Unavailable Amber, Martin Referring Unavailable Amber, Martin Primary Care Unavailable Percy, Salter Path Attending Unavailable Amber, Martin Primary Care Unavailable Ashvin Guillermo Attending Unavailable XaiveriterAshvin Referring Unavailable Amber, Martin Primary Care Unavailable Percy, Salter Path Attending Unavailable Percy, Salter Path Referring Unavailable Amber, Martin Primary Care Unavailable John Alvarez Attending Unavailable Percy, Salter Path Referring Unavailable Martin Clark Primary Care Unavailable Skyler Greer Attending Unavailable Medications Current Medications Medication Drug Class(es) Dates Sig (Normalized) Sig (Original) 8 hr acetaminophen 650 mg extended release oral tablet (5 sources) Start: 07-30-2024 take 1 tablet by mouth every twelve hours as needed for pain Acetaminophen (Tylenol Arthritis Pain) 650 mg tablet extended release Active 650 mg PO Q12H as needed for knee pain July 30, 2024 1:00am apixaban 5 mg oral tablet (5 sources) Factor Xa Inhibitor Start: 12-15-2024 take 1 tablet by mouth twice daily Apixaban (Eliquis) 5 mg tablet Active 5 mg PO TWICE A DAY December 15, 2024 12:00am atenolol 50 mg oral tablet (4 sources) beta-Adrenergic Noy Start: 01-10-2025 take 1 tablet by mouth twice daily Atenolol 50 mg tablet Active 50 mg PO TWICE A DAY 60 0 January 10, 2025 12:00am 24 hr dilTIAZem hydrochloride 180 mg extended release oral capsule (12 sources) Calcium Channel Noy Start: 03-13-2025 take 1 capsule by mouth twice daily Diltiazem Hcl 180 mg capsule,extended release 24hr Active 180 mg PO TWICE A DAY March 13, 2025 12:00am Start: 01-10-2025 End: 01-10-2025 take 1 capsule by mouth twice daily Diltiazem Hcl 180 mg capsule,extended release 24hr Discontinued 180 mg PO TWICE A DAY January 10, 2025 2:57pm January 10, 2025 3:26pm Start: 12-15-2024 End: 01-10-2025 take 1 capsule by mouth once daily Diltiazem Hcl 180 mg capsule,extended release 24hr Discontinued 180 mg PO daily December 15, 2024 12:00am January 10, 2025 2:59pm hydrOXYzine pamoate 25 mg oral capsule (5 sources) Antihistamine Start: 12-15-2024 take 1 capsule by mouth at bedtime Hydroxyzine Pamoate (Vistaril) 25 mg capsule Active 25 mg PO AT BEDTIME December 15, 2024 12:00am Completed/Discontinued Medications Medication Drug Class(es) Dates Sig (Normalized) Sig (Original) furosemide 40 mg oral tablet (14 sources) Loop Diuretic Start: 01-10-2025 End: 01-10-2025 take 1 tablet by mouth twice daily Furosemide (Lasix) 40 mg tablet Discontinued 40 mg PO TWICE A DAY January 10, 2025 2:57pm January 10, 2025 3:28pm Start: 12-15-2024 End: 01-10-2025 take 1 tablet by mouth once daily Furosemide (Lasix) 40 mg tablet Active 40 mg PO daily January 10, 2025 3:26pm 24 hr metoprolol succinate 50 mg extended release oral tablet (5 sources) beta-Adrenergic Noy Start: 12-15-2024 End: 01-10-2025 take 1 tablet by mouth once daily Metoprolol Succinate 50 mg tablet extended release 24 hr Discontinued 50 mg PO daily December 15, 2024 12:00am January 10, 2025 2:59pm pantoprazole 40 mg delayed release oral tablet (5 sources) Proton Pump Inhibitor Start: 07-30-2024 End: 01-10-2025 take 1 tablet by mouth once daily Pantoprazole (Protonix) 40 mg tablet,delayed release (DR/EC) Discontinued 40 mg PO DAILY 21 09July 30, 2024 1:00am January 10, 2025 2:59pm microencapsulated potassium chloride 20 meq extended release oral tablet (10 sources) Start: 01-10-2025 End: 01-10-2025 take 1 tablet by mouth every other day Potassium Chloride 20 mEq tablet,ER particles/crystal s Discontinued 20 meq PO every other day January 10, 2025 2:58pm January 10, 2025 3:27pm Start: 12-15-2024 End: 01-10-2025 take 1 tablet by mouth once daily Potassium Chloride 20 mEq tablet,ER particles/crystals Discontinued 20 meq PO daily December 15, 2024 12:00am January 10, 2025 2:59pm spironolactone 25 mg oral tablet (12 sources) Aldosterone Antagonist Start: 01-10-2025 End: 02-06-2025 take 1 tablet by mouth once daily Spironolactone 25 mg tablet Discontinued 25 mg PO daily 30 February 06, 2025 11:06am February 06, 2025 1:07pm Problems Active Problems Problem Classification Problem Date Documented Da te Episodic/Chronic Abdominal pain (5 sources) Abdominal pain; Translations: [Unspecified abdominal pain] 08-07-2024 Episodic Cardiac dysrhythmias (11 sources) Atrial fibrillation; Translations: [Unspecified atrial fibrillation] Onset: 03-15-2025 12-15-2024 Chronic Congestive heart failure; nonhypertensive (9 sources) Symptomatic congestive heart failure; Translations: [Heart failure, unspecified] 01-10-2025 Chronic Essential hypertension (9 sources) Hypertensive disorder; Translations: [Essential (primary) hypertension] 01-10-2025 Chronic Hypertension with complications and secondary hypertension (1 source) Hypertensive heart disease with heart failure; Translations: [Hypertensive heart disease with heart failure] Onset: 03-26-2025 Chronic Other lower respiratory disease (1 source) Shortness of breath; Translations: [Shortness of breath] Onset: 07-02-2025 Episodic Other screening for suspected conditions (not mental disorders or infectious disease) (7 sources) Patient encounter status; Translations: [Encounter for screening for malignant neoplasm of colon] 03-12-2023 Episodic Other upper respiratory infections (6 sources) Viral upper respiratory tract infection; Translations: [Acute upper respiratory infection, unspecified] 08-25-2019 Episodic Past or Other Problems Problem Classification Problem Date Documented Da te Episodic/Chronic Nonspecific chest pain (1 source) Chest pain, unspecified; Translations: [Chest pain, unspecified] Onset: 08-31-2024 Episodic Results Test Name Value Interpretation Reference Range Facil ity Basic Metabolic Profile (BMP )on 06-26-2025 BUN/CRE 20.2 RATIO High 10-20 [facility] Comment on above: Performed By: #### L 500.2500 #### [facility] Laboratory [address] [place], [address] Calcium [Mass/Vol] 9.0 mg/dL Normal 7.6-11.0 [facility] Comment on above: Performed By: #### L 500.2500 #### [facility] Laboratory [address] [place], [address] Chloride [Moles/Vol] 102 mmol/L Normal 98-108 [facility] Comment on above: Performed By: #### L 500.2500 #### [facility] [address] [place], [address] CO2 [Moles/Vol] 27.0 mmol/L Normal 21.0-32.0 [facility] Comment on above: Performed By: #### L 500.2500 #### [facility] [address] [place], [address] Creatinine [Mass/Vol] 1.60 mg/dL High 0.70-1.20 [facility] Comment on above: Performed By: #### L 500.2500 #### [facility] [address] [place], [address] GAP 10 Normal 5-15 [facility] Comment on above: Performed By: #### L 500.2500 #### [facility] [address] [place], [address] GFR/1.73 sq M.predicted among non-blacks MDRD (S/P/Bld) [Vol rate/Area] 44 mL/min/{1.73_m2} Low >60 [facility] Comment on above: Result Comment: mL/m in/1.73m2 CKD-EPI Creatinine Equation (2020) Performed By: #### L 500.2500 #### [facility] [address] [place], [address] Glucose [Mass/Vol] 138 mg/dL High 70-99 [facility] Comment on above: Performed By: #### L 500.2500 #### [facility] Laboratory [address] [place], [address] Potassium [Moles/Vol] 4.6 mmol/L Normal 3.3-5.1 [facility] Comment on above: Performed By: #### L 500.2500 #### [facility] [address] [place], [address] Sodium [Moles/Vol] 139 mmol/L Normal 133-145 [facility] Comment on above: Performed By: #### L 500.2500 #### [facility] [address] [place], [address] Urea nitrogen [Mass/Vol] 32 mg/dL High 4-19 [facility] Comment on above: Performed By: #### L 500.2500 #### [facility] [address] [place], [address] Basic Metabolic Profile (BMP )on 03-22-2025 BUN Normal 4-19 [facility] Comment on above: Result Comment: DUPL ICATE Performed By: #### L 500.2500 ####[facility] [address] [place], [address] BUN/CRE Normal 10-20 [facility] Comment on above: Result Comment: DUPL ICATE Performed By: #### L 500.2500 ####[facility] [address] [place], [address] Calcium Normal 7.6-11.0 [facility] Comment on above: Result Comment: DUPL ICATE Performed By: #### L 500.2500 ####[facility] [address] [place], [address] CL Normal 98-108 [facility] Comment on above: Result Comment: DUPL ICATE Performed By: #### L 500.2500 ####[facility] [address] [place], [address] CO2 Normal 21.0-32.0 [facility] Comment on above: Result Comment: DUPL ICATE Performed By: #### L 500.2500 ####[facility] [address] [place], [address] CREAT,SERUM Normal 0.70-1.20 [facility] Comment on above: Result Comment: DUPL ICATE Performed By: #### L 500.2500 ####[facility] [address] [place], [address] eGFR Normal >60 [facility] Comment on above: Result Comment: DUPL ICATE Performed By: #### L 500.2500 ####[facility] [address] [place], [address] GAP Normal -15 [facility] Comment on above: Result Comment: DUPL ICATE Performed By: #### L 500.2500 ####[facility] [address] [place], [address] GLU Normal 70-99 [facility] Comment on above: Result Comment: DUPL ICATE Performed By: #### L 500.2500 ####[facility] [address] [place] [place], [address] Potassium Normal 3.3-5.1 [facility] Comment on above: Result Comment: DUPL ICATE Performed By: #### L 500.2500 ####[facility] [address] [place], [address] Basic Metabolic Profile (BMP) Normal 133-145 [facility] Comment on above: Result Comment: [facility] Performed By: #### L 500.2500 ####[facility] [address] [place], [address] Anion gap in Serum or Plasma Ordered By: Skyler Percy on 03-13-2025 Anion gap [Moles/Vol] 13 mmol/L - [facility] BUN/creatinine ratioOrdered By: Skyler Greer on 03-13-2025 Urea nitrogen/Creatinine [Mass ratio] 22.9 mg/mg High - [facility] Basic Metabolic Profile (BMP )on 03-13-2025 BUN/CRE 22.9 RATIO High - [facility] Comment on above: Performed By: #### L 500.2500 #### [facility] Laboratory [address] [place], [address] Calcium [Mass/Vol] 9.2 mg/dL Normal 7.6-11.0 [facility] Comment on above: Performed By: #### L 500.2500 #### [facility] Laboratory [address] [place], [address] Chloride [Moles/Vol] 103 mmol/L Normal 98-108 [facility] Comment on above: Performed By: #### L 500.2500 #### [facility] Laboratory [address] [place], [address] CO2 [Moles/Vol] 23.5 mmol/L Normal 21.0-32.0 [facility] Comment on above: Performed By: #### L 500.2500 #### [facility] Laboratory [address] [place], [address] Creatinine [Mass/Vol] 1.46 mg/dL High 0.70-1.20 [facility] Comment on above: Performed By: #### L 500.2500 #### [facility] Laboratory [address] [place], [address] GAP 13 Normal 5-15 [facility] Comment on above: Performed By: #### L 500.2500 #### [facility] Laboratory [address] [place], [address] GFR/1.73 sq M.predicted among non-blacks MDRD (S/P/Bld) [Vol rate/Area] 50 mL/min/{1.73_m2} Low >60 [facility] Comment on above: Result Comment: mL/m in/1.73m2 CKD-EPI Creatinine Equation (2020) Performed By: #### L 500.2500 #### [facility] Laboratory [address] [place], [address] Glucose [Mass/Vol] 105 mg/dL High 70-99 [facility] Comment on above: Performed By: #### L 500.2500 #### [facility] Laboratory [address] [place], [address] Potassium [Moles/Vol] 5.0 mmol/L Normal 3.3-5.1 [facility] Comment on above: Performed By: #### L 500.2500 #### [facility] Laboratory [address] [place], [place], [address] Sodium [Moles/Vol] 139 mmol/L Normal 133-145 [facility] Comment on above: Performed By: #### L 500.2500 #### [facility] Laboratory [address] [place], [place], [address] Urea nitrogen [Mass/Vol] 33 mg/dL High 4-19 [facility] Comment on above: Performed By: #### L 500.2500 #### [facility] Laboratory [address] [place], [place], [address] Carbon dioxide, total [Moles /volume] in Central venous bloodOrdered By: Skyler Greer on 03-13-2025 CO2 [Moles/Vol] 23.5 mmol/L 21.0-32.0 [facility] Cardiology Visit Reporton Cardiology Visit Report [facility] [address] [place], [place] [address] OFFICE VISIT Date of Service: 03/13/25 MR#: [id number] Acct: [id number] Name: AKASH RUTH Rep #: [id number] : 1950 Provider: Dr. Skyler Greer MD Age/Sex: 74/M Location: [facility] Status: Signed HPI HPI History of Present Illness Details: 74-year-old man with no previous cardiac history who presents for evaluation of his atrial fibrillation. He was recently diagnosed with atrial fibrillation with rapid ventricular response rate was started on Lasix Eliquis and beta-noy and potassium. He does not like the potassium pills. He had been on diltiazem and was noted to have an elevated blood pressure. At his last visit he had atenolol added to his regimen and an echocardiogram performed as well as a Holter monitor. The monitor demonstrated an average heart rate of 66 bpm with the patient in atrial fibrillation with a minimum heart rate noted at 66 bpm and a maximum of 182 bpm. It was not clear what the duration of time that he was tachycardic was on the monitor. He says that he feels quite well at this time anyway. Intake Vital Signs 01/10/25 14:50 03/13/25 13:51 Height 5 ft 8 in 5 ft 8 in Weight: 190 lb BMI 28.8 BP 126/71 H Blood Pressure Location Lt brachial Position Sitting Respiration 16 Pulse 70 Pulse Source Monitor Intake Visit Reasons: 6 WK FU Licensed Insurance Sales Agent Required: No Accompanied by: Self Is patient in pain?: No Allergies No Known Allergies Allergy (Verified 03/13/25 13:54) Medications ???Medication ???Instructions ???Recorded ???Confirmed ???Type acetaminophen 650 mg 650 mg PO Q12H PRN knee pain 07/3003/13/25 History tablet,extended release (Tylenol Arthritis Pain) apixaban 5 mg tablet (Eliquis) 5 mg PO BID 12/15/24 03/13/25 Hist ory hydroxyzine pamoate 25 mg capsule 25 mg PO QHS 12/15/24 03/13/25 Hi story (Vistaril) atenolol 50 mg tablet 50 mg PO BID #60 tabs 01/10/25 Rx furosemide 40 mg tablet (Lasix) 40 mg PO QDAY 01/10/25 03/13/25 Hi story spironolactone 25 mg tablet 25 mg PO QDAY #90 tabs 02/06/25 Rx diltiazem HCl 180 mg 180 mg PO BID 03/13/25 03/13/25 Hi story capsule,extended release 24 hr Have you fallen in the past year?: No PFSH Medical History Afib Surgical History No history of previous surgery Family History Brother Myocardial infarction Cony Gehrig disease Social History household members: spouse Smoking Status: Former smoker torito/denominational: Anabaptism ROS Const Const: Negative for fatigue, weakness, headache(s), daytime sleepiness or difficulty sleeping ENT ENT: Negative for headache(s), dizziness or Nosebleed/epistaxis Cardio Chest Pain: No Palpitations: Yes Edema: Bilateral (BLE trace at times ) Resp Respiratory: Positive for SOB with activity (with exertion); Negative for SOB at rest, SOB orthopnea SOB lying down or Cough GI GI: Negative nausea, vomiting [...] GI GI: normal to inspection, soft, no hepatosplenome (more content not included)... Normal [facility] Chloride assayOrdered By: Jorgito Greer on 03-13-2025 Chloride [Moles/Vol] 103 mmol/L 98-108 [facility] Glomerular filtration rate ( GFR) estimation/1.73 sq m using serum, plasma, or whole bOrdered By: Skyler Greer on 03-13-2025 GFR/1.73 sq M.predicted among non-blacks MDRD (S/P/Bld) [Vol rate/Area] 50 mL/min/{1.73_m2} Low >60 [facility] Comment on above: mL/min/1.73m2 CKD-EP I Creatinine Equation (2020) Potassium measurement (mass/ volume)Ordered By: Skyler Greer on 03-13-2025 Potassium (Unsp spec) [Mass/Vol] 5.0 mmol/L 3.3-5.1 [facility] Serum creatinine measurement (mass/volume)Ordered By: Skyler Greer on 03-13-2025 Creatinine [Mass/Vol] 1.46 mg/dL High 0.70-1.20 [facility] Serum glucose measurement (m ass/volume)Ordered By: Skyler Greer on 03-13-2025 Glucose [Mass/Vol] 105 mg/dL High 70-99 [facility] Serum or plasma calcium shawn urement (mass/volume)Ordered By: Skyler Greer on 03-13-2025 Calcium [Mass/Vol] 9.2 mg/dL 7.6-11.0 [facility] Serum or plasma urea nitroge n measurement (mass/volume)Ordered By: Skyler Greer on 03-13-2025 Urea nitrogen [Mass/Vol] 33 mg/dL High 4-19 [facility] Sodium levelOrdered By: Sam Greer on 03-13-2025 Sodium [Moles/Vol] 139 mmol/L 133-145 [facility] Echo Completeon 02-15-2025 Echo Complete [facility] [address] [place] [address] Echo Complete 02/15/25 0858 MR#: [id number] Acct: [id number] Name: AKASH RUTH Rep #: [id number] : 1950 74 From: Skyler Greer MD Attending Dr: Dr. Skyler Greer MD Status: ROSA M PORRAS Ordering Dr: Skyler Greer MD Date: 02/15/25 Location: [facility] Sex: M C Admitted: Reason For Study Reason For Study: Afib/Flutter Procedure This was a 2D Doppler, Color Flow transthoracic echocardiogram. Exam performed in department. Left Ventricle Normal LV size. The left ventricular ejection fraction is 40 %. There is mild global hypokinesis of the left ventricle. Right Ventricle Normal RV size. Normal systolic function. Atria The left atrium is mildly enlarged. The right atrium is moderately enlarged. Mitral Valve Normal mitral valve. Mild-Moderate (1-2+) eccentric mitral valve insufficiency. Tricuspid Valve Normal tricuspid valve. Mild to moderate (1-2+) tricuspid valve insufficiency. Pulmonary artery systolic pressure is 42 mmHg. Aortic Valve Trisinus/trileaflet aortic valve. Pulmonic Valve Normal pulmonic valve. Great Vessels Normal aortic root. The pulmonary artery is normal size. Inferior vena cava collapse with respiration. Pericardium/Pleural No pericardial effusion. MMode/2D Measurements Calculations LVIDd: 5.0 cm IVSd: 1.2 cm LVOT diam: 2.1 cm LVIDs: 3.7 cm LVPWd: 1.1 cm LVOT area: 3.4 cm2 RVDd: 3.8 cm FS: 26.5 % Ao root diam: 3.9 cm LAV(MOD-bp): 71.0 ml LVAd ap4: 28.6 cm2 LAV(MOD-bp) Indexed: 35.1 ml/m2 LVLd ap4: 7.8 cm LAV(MOD-sp2): 71.4 ml EDV(MOD-sp4): 86.1 ml LAV(MOD-sp4): 67.6 ml EDV(sp4-el): 89.2 ml LVAs ap4: 21.5 cm2 LVLs ap4: 7.3 cm ESV(MOD-sp4): 52.3 ml ESV(sp4-el): 54.1 ml EF(MOD-sp4): 39.2 % EF(sp4-el): 39.4 % SV(MOD-sp4): 33.7 ml SV(sp4-el): 35.2 ml Ao sinus diam: 3.6 cm SI(MOD-sp4): 16.7 ml/m2 Ao ST Junction: 2.5 cm LA A4 area: 23.0 cm2 LA dimension(2D): 4.5 cm TAPSE: 1.3 cm RA A4 area: 24.6 cm2 Doppler Measurements Calculations MV E max wing: 82.3 cm/sec MV V2 max: 107.1 cm/sec Ao V2 max: 146.6 cm/sec MV max P.6 mmHg Ao max P.6 mmHg MV V2 mean: 63.7 cm/sec Ao V2 mean: 103.7 cm/sec MV mean P.9 mmHg Ao mean P.9 mmHg MV V2 VTI: 23.3 cm Ao V2 VTI: 23.1 cm MVA(VTI): 1.7 cm2 AV (velocity ratio): 0.52 SAM(I,D): 1.8 cm2 SAM(V,D): 1.6 cm2 LV V1 max: 67.2 cm/sec MR max wing: 483.7 cm/sec SV(LVOT): 40.6 ml LV V1 max P.8 mmHg MR max P.6 mmHg LV V1 mean P.1 mmHg MR mean wing: 365.1 cm/sec LV V1 mean: 48.8 cm/sec MR mean P.8 mmHg LV V1 VTI: 11.9 cm MR VTI: 129.3 cm PA V2 max: 74.2 cm/sec TR max wing: 307.6 cm/sec TR max P.8 mmHg ECHO/Echo Complete Interpretation Summary The left ventricular ejection fraction is 40 %. Normal LV size. There is mild global hypokinesis of the left ventricle. The left atrium is mildly enlarged. The right atrium is moderately enlarged. Mild-Moderate (1-2+) eccentric mitral valve insufficiency. Mild to moderate (1-2+) tricuspid valve insufficiency. Ordering Physician: Skyler Greer Referring Physician: Skyler Greer Performed By: Eliseo Lau RCS 02/15/25 1533 Date Skyler Greer MD CC: Dr. Martin Clark MD; Dr. Skyler Greer MD Date Dictated: 02/15/25857 Date Transcribed: 02/15/251532 Meal Packer: Signed Normal [facility] Echocardiogram study reportO rdered By: Skyler Greer on 02-15-2025 Study report [facility] [address] [place] [address] Echo Complete 02/15/25857 MR#: [id number] Acct: [id number] Name: AKASH RUTH Rep #:[id number] : 1950 74 From: Skyler Tapia Attending Dr: Dr. Skyler Greer MD S tatus: REG CLI Ordering Dr: Skyler Greer MD Date: Location: [facility] Sex: M C Admitted: Reason For Study Reason For Study: Afib/Flutter Procedure This was a 2D Doppler, Color Flow transthoracic echocardiogram. Exam performed in department. Left Ventricle Normal LV size. The left ventricular ejection fraction is 40 %. There is mild global hypokinesis of the left ventricle. Right Ventricle Normal RV size. Normal systolic function. Atria The left atrium is mildly enlarged. The right atrium is moderately enlarged. Mitral Valve Normal mitral valve. Mild-Moderate (1-2+) eccentric mitral valve insufficiency. Tricuspid Valve Normal tricuspid valve. Mild to moderate (1-2+) tricuspid valve insufficiency. Pulmonary artery systolic pressure is 42 mmHg. Aortic Valve Trisinus/trileaflet aortic valve. Pulmonic Valve Normal pulmonic valve. Great Vessels Normal aortic root. The pulmonary artery is normal size. Inferior vena cava collapse with respiration. Pericardium/Pleural No pericardial effusion. MMode/2D Measurements & Calculations LVIDd: 5.0 cm IVSd: 1.2 cm LVOT diam: 2.1 cm LVIDs: 3.7 cm LVPWd: 1.1 cm LVOT area: 3.4 cm2 RVDd: 3.8 cm FS: 26.5 % Ao root diam: 3.9 cm LAV(MOD-bp): 71.0 ml LVAd ap4: 28.6 cm2 LAV(MOD-bp) Indexed: 35.1 ml/m2 LVLd ap4: 7.8 cm LAV(MOD-sp2): 71.4 ml EDV(MOD-sp4): 86.1 ml LAV(MOD-sp4): 67.6 ml EDV(sp4-el): 89.2 ml LVAs ap4: 21.5 cm2 LVLs ap4: 7.3 cm ESV(MOD-sp4): 52.3 ml ESV(sp4-el): 54.1 ml EF(MOD-sp4): 39.2 % EF(sp4-el): 39.4 % SV(MOD-sp4): 33.7 ml SV(sp4-el): 35.2 ml Ao sinus diam: 3.6 cm SI(MOD-sp4): 16.7 ml/m2 Ao ST Junction: 2.5 cm LA A4 area: 23.0 cm2 LA dimension(2D): 4.5 cm TAPSE: 1.3 cm RA A4 area: 24.6 cm2 Doppler Measurements & Calculations MV E max wing: 82.3 cm/sec MV V2 max: 107.1 cm/sec Ao V2 max: 146.6 cm/sec MV max P.6 mmHg Ao max P.6 mmHg MV V2 mean: 63.7 cm/sec Ao V2 mean: 103.7 cm/sec MV mean P.9 mmHg Ao mean P.9 mmHg MV V2 VTI: 23.3 cm Ao V2 VTI: 23.1 cm MVA(VTI): 1.7 cm2 AV (velocity ratio): 0.52 SAM(I,D): 1.8 cm2 SAM(V,D): 1.6 cm2 LV V1 max: 67.2 cm/sec MR max wing: 483.7 cm/sec SV(LVOT): 40.6 ml LV V1 max P.8 mmHg MR max P.6 mmHg LV V1 mean P.1 mmHg MR mean wing: 365.1 cm/sec LV V1 mean: 48.8 cm/sec MR mean P.8 mmHg LV V1 VTI: 11.9 cm MR VTI: 129.3 cm ___ PA V2 max: 74.2 cm/sec TR max wing: 307.6 cm/sec TR max P.8 mmHg ECHO/Echo Complete Interpretation Summary The left ventricular ejection fraction is 40 %. Normal LV size. There is mild global hypokinesis of the left ventricle. The left atrium is mildly enlarged. The right atrium is moderately enlarged. Mild-Moderate (1-2+) eccentric mitral valve insufficiency. Mild to moderate (1-2+) tricuspid valve insufficiency. Ordering Physician: Skyler Greer Referring Physician: Skyler Greer Performed By: Eliseo Lau RCS 02/15/25 153 Date _ Skyler Greer MD CC: Dr. Martin Clark MD; Dr. Skyler Greer MD ~ Date Dictated: 02/15/2558 Date Transcribed: 02/15/251532 Meal Packer: Signed [facility] Work Phone: Cardiology Visit Reporton Cardiology Visit Report [facility] [address] [place] [address] [address] [place] [address] OFFICE VISIT Date of Service: 01/10/25 MR#: [id number] Acct: [id number] Name: AKASH RUTH Rep #: [id number] : 1950 Provider: Dr. Skyler Greer MD Age/Sex: 74/M Location: [facility] Status: Signed HPI HPI History of [...] Pulse Source Monitor Intake Visit Reasons: LEONEL VALLADARES) Licensed Insurance Sales Agent Required: No Accompanied by: Self Is patient [...] History (Updated 12/15/24 @ 11:47 by Leny Mata, RN) household members: spouse Smoking Status: Former smoker torito/denominational: Anabaptism ROS Const Const: Negative for fatigue, weakness, [...] no hepatosplenom (more content not included)... Normal [facility] 12 Lead EKGon 07-30-2024 12 Lead EKG [facility] Cardiovascular Services [address] [place] [address] 12 Lead EKG 07/30/24 1629 MR#: [id number] Acct: [id number] Name: AKASH RUTH Rep #: [id number] : 1950 74 From: Skyler Greer MD Attending Dr: Status: DEP ER Ordering Dr: Sahil Beaver IC DESIGNER CUSTOM-C Date: 07/30/24 Location: ED Sex: M C [...] ECG Confirmed by SKYLER GREER MD ([id number]), continuity editor PATRICIA NICOLAS ([id number]) on 08/01/2024 8:04:50 AM Referred By: Confirmed By: SKYLER GREER MD 08/01/24 0804 Date Skyler Greer MD CC: IC DESIGNER CUSTOM-C Sahil Beaver; Dr. Martin Clark MD; Dr. John Alvarez, DO Signed Normal [facility] Abdomen/Pelvis W IV Cont ONL Yon 07-30-2024 Abdomen/Pelvis W IV Cont ONLY [facility] Imaging Services [address] [place] [address] Abdomen/Pelvis W IV Cont ONLY MR#: [id number] Acct: [id number] Name: AKASH RUTH Rep #: [id number] : 1950 M 74 From: Kem Tapia PCP: Dr. Martin Clark MD Status: REG ER Study: Abdomen/Pelvis W IV Cont ONLY Date of Exam: Exam# [id number] Ordering Dr: Sahil Beaver IC DESIGNER CUSTOM-C [id number] STUDY: CT Abdomen And Pelvis W/ Contrast [...] CC: BRUCE Beaver; Dr. Martin Clark MD Meal Packer: Signed Normal [facility] CBC W/Diff, Automatedon 12-0 Absolute Lymph 1.11 X10 3/uL Normal 0.83-4.51 [facility] Comment on above: Performed By: #### L 500.4050, L100.0100, L501.2450, L503.6005, L501.4020 #### [facility] Laboratory [address] [place], [address] Absolute Neut 6.8 X10 3/uL Normal 2.0-7.7 [facility] Comment on above: Performed By: #### L 500.4050, L100.0100, L501.2450, L503.6005, L501.4020 #### [facility] Laboratory [address] [place], [address] Basophils/100 WBC (Bld) 0.3 % Normal 0-1 [facility] Comment on above: Performed By: #### L 500.4050, L100.0100, L501.2450, L503.6005, L501.4020 #### [facility] Laboratory [address] [place], [address] Eosinophils/100 WBC (Bld) 0.3 % Normal 0-5 [facility] Comment on above: Performed By: #### L 500.4050, L100.0100, L501.2450, L503.6005, L501.4020 #### [facility] Laboratory [address] [place], [address] Erythrocyte distribution width (RBC) [Ratio] 13.8 % Normal 11.6-14.6 [facility] Comment on above: Performed By: #### L 500.4050, L100.0100, L501.2450, L503.6005, L501.4020 #### [facility] Laboratory [address] [place], [address] Hematocrit (Bld) [Volume fraction] 41.8 % Normal 40-54 [facility] Comment on above: Performed By: #### L 500.4050, L100.0100, L501.2450, L503.6005, L501.4020 #### [facility] Laboratory [address] [place], [address] Hemoglobin (Bld) [Mass/Vol] 13.9 g/dL Normal 13.0-16.5 [facility] Comment on above: Performed By: #### L 500.4050, L100.0100, L501.2450, L503.6005, L501.4020 #### [facility] Laboratory [address] [place], [address] IG% 0.200 Normal 0.0-0.9 [facility] Comment on above: Result Comment: IG% - Immature Granulocytes (promyelocytes, myelocytes and metamyelocytes) > 1% indicates that a LEFT SHIFT is Present. Performed By: #### L 500.4050, L100.0100, L501.2450, L503.6005, L501.4020 #### [facility] Laboratory [address] [place], [address] Lymphocytes/100 WBC (Bld) 12.6 % Low 19-41 [facility] Comment on above: Performed By: #### L 500.4050, L100.0100, L501.2450, L503.6005, L501.4020 #### [facility] Laboratory [address] [place], [address] MCH (RBC) [Entitic mass] 31.8 pg Normal 27.0-32.0 [facility] Comment on above: Performed By: #### L 500.4050, L100.0100, L501.2450, L503.6005, L501.4020 #### [facility] Laboratory [address] [place], [address] MCHC (RBC) [Mass/Vol] 33.3 g/dL Normal 32-36 [facility] Comment on above: Performed By: #### L 500.4050, L100.0100, L501.2450, L503.6005, L501.4020 #### [facility] Laboratory [address] [place], [address] MCV (RBC) [Entitic vol] 95.7 fL High 80-94 [facility] Comment on above: Performed By: #### L 500.4050, L100.0100, L501.2450, L503.6005, L501.4020 #### [facility] Laboratory [address] [place], [address] Monocytes/100 WBC (Bld) 9.7 % Normal 0-10 [facility] Comment on above: Performed By: #### L 500.4050, L100.0100, L501.2450, L503.6005, L501.4020 #### [facility] Laboratory [address] [place], [address] Neutrophils/100 WBC (Bld) 76.9 % High 47-70 [facility] Comment on above: Performed By: #### L 500.4050, L100.0100, L501.2450, L503.6005, L501.4020 #### [facility] Laboratory [address] [place], [address] Nucleated RBC (Bld) [#/Vol] 0 10*3/uL Normal 0-5 [facility] Comment on above: Performed By: #### L 500.4050, L100.0100, L501.2450, L503.6005, L501.4020 #### [facility] Laboratory [address] [place], [address] Platelet mean volume (Bld) [Entitic vol] 9.7 fL Normal 6.2-12.0 [facility] Comment on above: Performed By: #### L 500.4050, L100.0100, L501.2450, L503.6005, L501.4020 #### [facility] Laboratory [address] [place], [address] Platelets (Bld) [#/Vol] 269 10*3/uL Normal 150-450 [facility] Comment on above: Performed By: #### L 500.4050, L100.0100, L501.2450, L503.6005, L501.4020 #### [facility] Laboratory [address] [place], [address] RBC (Bld) [#/Vol] 4.37 10*6/uL Low 4.6-6.2 [facility] Comment on above: Performed By: #### L 500.4050, L100.0100, L501.2450, L503.6005, L501.4020 #### [facility] Laboratory [address] [place], [address] RDW SD 49.1 fl High 35.1-43.9 [facility] Comment on above: Performed By: #### L 500.4050, L100.0100, L501.2450, L503.6005, L501.4020 #### [facility] Laboratory [address] [place], [address] WBC (Bld) [#/Vol] 8.8 10*3/uL Normal 4.4-11.0 [facility] Comment on above: Performed By: #### L 500.4050, L100.0100, L501.2450, L503.6005, L501.4020 #### [facility] Laboratory [address] [place] [place], [address] Chest 1 View (Portable)on Chest 1 View (Portable) [facility] Imaging Services [address] [place], [place] [address] Chest 1 View (Portable) MR#: [id number] Acct: [id number] Name: AKASH RUTH Rep #: [id number] : 1950 M 74 From: Kem Tapia PCP: Dr. Martin Clark MD Status: REG ER Study: Chest 1 View (Portable) Date of Exam: 07/30/24 Exam# [id number] Ordering Dr: Sahil Beaver IC DESIGNER CUSTOM-C [id number] STUDY: XR Chest 1 View 07/30/2024 6:21 [...] Signed: Kem Stahl MD at 19:01 EST , CC: BRUCE Beaver; Dr. Martin Clark MD Meal Packer: Signed Normal [facility] Comprehensive Metabolic Prof ilon 07-30-2024 Albumin [Mass/Vol] 3.6 g/dL Normal 3.2-5.0 [facility] Comment on above: Order Comment: 'TROP ' Serial specimen #1, #2 or #3: 1 Performed By: #### L 500.4050, L100.0100, L501.2450, L503.6005, L501.4020 #### [facility] Laboratory [address] [place], [address] Albumin/Globulin [Mass ratio] 1.0 {ratio} Normal 0.9-2.4 [facility] Comment on above: Order Comment: 'TROP ' Serial specimen #1, #2 or #3: 1 Performed By: #### L 500.4050, L100.0100, L501.2450, L503.6005, L501.4020 #### [facility] Laboratory [address] [place], [address] ALK P 57 U/L Normal 45-117 [facility] Comment on above: Order Comment: 'TROP ' Serial specimen #1, #2 or #3: 1 Performed By: #### L 500.4050, L100.0100, L501.2450, L503.6005, L501.4020 #### [facility] Laboratory [address] [place], [address] ALT [Catalytic activity/Vol] 32 U/L Normal 16-61 [facility] Comment on above: Order Comment: 'TROP ' Serial specimen #1, #2 or #3: 1 Performed By: #### L 500.4050, L100.0100, L501.2450, L503.6005, L501.4020 #### [facility] Laboratory [address] [place], [address] AST [Catalytic activity/Vol] 27 U/L Normal 15-37 [facility] Comment on above: Order Comment: 'TROP ' Serial specimen #1, #2 or #3: 1 Performed By: #### L 500.4050, L100.0100, L501.2450, L503.6005, L501.4020 #### [facility] Laboratory [address] [place], [address] Bilirubin [Mass/Vol] 1.10 mg/dL High 0.20-1.00 [facility] Comment on above: Order Comment: 'TROP ' Serial specimen #1, #2 or #3: 1 Result Comment: For patients on eltrombopag therapy, use of Dimension [place] TBIL is not recommended. Performed By: #### L 500.4050, L100.0100, L501.2450, L503.6005, L501.4020 #### [facility] Laboratory [address] [place], [address] BUN/CRE 27.1 RATIO High 10-20 [facility] Comment on above: Order Comment: 'TROP ' Serial specimen #1, #2 or #3: 1 Performed By: #### L 500.4050, L100.0100, L501.2450, L503.6005, L501.4020 #### [facility] Laboratory [address] [place], [address] CA,Total 9.0 mg/dL Normal 8.5-10.1 [facility] Comment on above: Order Comment: 'TROP ' Serial specimen #1, #2 or #3: 1 Performed By: #### L 500.4050, L100.0100, L501.2450, L503.6005, L501.4020 #### [facility] Laboratory [address] [place], [address] Chloride [Moles/Vol] 105 mmol/L Normal 98-107 [facility] Comment on above: Order Comment: 'TROP ' Serial specimen #1, #2 or #3: 1 Performed By: #### L 500.4050, L100.0100, L501.2450, L503.6005, L501.4020 #### [facility] Laboratory [address] [place], [address] CO2 [Moles/Vol] 25.0 mmol/L Normal 21.0-32.0 [facility] Comment on above: Order Comment: 'TROP ' Serial specimen #1, #2 or #3: 1 Performed By: #### L 500.4050, L100.0100, L501.2450, L503.6005, L501.4020 #### [facility] Laboratory [address] [place], [address] Creatinine [Mass/Vol] 0.96 mg/dL Normal 0.70-1.30 [facility] Comment on above: Order Comment: 'TROP ' Serial specimen #1, #2 or #3: 1 Result Comment: The validity of the calculated GFR GFRAA in patients over 70 years has not been determined. Clinical correlation is essential. Performed By: #### L 500.4050, L100.0100, L501.2450, L503.6005, L501.4020 #### [facility] Laboratory [address] [place], [address] ECRCL 69.85 ml/min Normal [facility] Comment on above: Order Comment: 'TROP ' Serial specimen #1, #2 or #3: 1 Performed By: #### L 500.4050, L100.0100, L501.2450, L503.6005, L501.4020 #### [facility] Laboratory [address] [place], [address] EST GFR - AA 98 mL/min Normal >60 [facility] Comment on above: Order Comment: 'TROP ' Serial specimen #1, #2 or #3: 1 Result Comment: Afri can [place] Islander GFR Calc Performed By: #### L 500.4050, L100.0100, L501.2450, L503.6005, L501.4020 #### [facility] Laboratory [address] [place], [address] GAP 7 Normal 5-15 [facility] Comment on above: Order Comment: 'TROP ' Serial specimen #1, #2 or #3: 1 Performed By: #### L 500.4050, L100.0100, L501.2450, L503.6005, L501.4020 #### [facility] Laboratory [address] [place], [address] GFR/1.73 sq M.predicted among non-blacks MDRD (S/P/Bld) [Vol rate/Area] 81 mL/min/{1.73_m2} Normal >60 [facility] Comment on above: Order Comment: 'TROP ' Serial specimen #1, #2 or #3: 1 Result Comment: Non- GFR Calc Performed By: #### L 500.4050, L100.0100, L501.2450, L503.6005, L501.4020 #### [facility] Laboratory [address] [place], [address] Globulin (S) [Mass/Vol] 3.5 g/dL Normal 2.2-4.2 [facility] Comment on above: Order Comment: 'TROP ' Serial specimen #1, #2 or #3: 1 Performed By: #### L 500.4050, L100.0100, L501.2450, L503.6005, L501.4020 #### [facility] Laboratory [address] [place], [address] Glucose [Mass/Vol] 123 mg/dL High 74-106 [facility] Comment on above: Order Comment: 'TROP ' Serial specimen #1, #2 or #3: 1 Result Comment: Fast ing Glucose result from 100 to 125 mg/dL suggests IMPAIRED HOMEOSTASIS per A.D.A. criteria. Performed By: #### L 500.4050, L100.0100, L501.2450, L503.6005, L501.4020 #### [facility] Laboratory [address] [place], [address] Potassium [Moles/Vol] 3.9 mmol/L Normal 3.5-5.1 [facility] Comment on above: Order Comment: 'TROP ' Serial specimen #1, #2 or #3: 1 Performed By: #### L 500.4050, L100.0100, L501.2450, L503.6005, L501.4020 #### [facility] Laboratory [address] [place], [address] Sodium [Moles/Vol] 137 mmol/L Normal 136-145 [facility] Comment on above: Order Comment: 'TROP ' Serial specimen #1, #2 or #3: 1 Performed By: #### L 500.4050, L100.0100, L501.2450, L503.6005, L501.4020 #### [facility] Laboratory [address] [place], [address] T PROT 7.1 g/dL Normal 6.4-8.2 [facility] Comment on above: Order Comment: 'TROP ' Serial specimen #1, #2 or #3: 1 Performed By: #### L 500.4050, L100.0100, L501.2450, L503.6005, L501.4020 #### [facility] Laboratory [address] [place], [address] Urea nitrogen [Mass/Vol] 26 mg/dL High 7-18 [facility] Comment on above: Order Comment: 'TROP ' Serial specimen #1, #2 or #3: 1 Performed By: #### L 500.4050, L100.0100, L501.2450, L503.6005, L501.4020 #### [facility] Laboratory [address] [place], [address] Emergency Department Summary on 07-30-2024 Emergency Department Summary [facility] Medical Records Department [address] [place] [address] Emergency Department Summary 07/30/24 MR#: [id number] Acct: [id number] Name: AKASH RUTH Rep #: [id number] : 1950 74 From: John Alvarez DO [...] pain returned and is here for evaluation. [facility] Medical History (Updated 07/30/24 @ 19:16 [...] spouse Smoking Status: Unknown if ever smoked torito/denominational: Anabaptism ROS ROS ED ROS Narrative Constitutional: Negative [...] Delivery Method (more content not included)... Normal [facility] L501.4020on 07-30-2024 TROPONIN-I HS 10 pg/mL Normal 3.0-78.0 [facility] Comment on above: Order Comment: 'TROP ' Serial specimen #1, #2 or #3: 2 Result Comment: Plea se Note: New Test Units and Gender Specific Reference Ranges. For more information see Policy Stat Procedure [place] High Sensitivity Troponin (TNIH) and attachments. Performed By: #### L 501.4020 ####[facility] [address] [place], [place], [address] TROPONIN-I HS 7 pg/mL Normal 3.0-78.0 [facility] Comment on above: Order Comment: 'TROP ' Serial specimen #1, #2 or #3: 1 Result Comment: Plea se Note: New Test Units and Gender Specific Reference Ranges. For more information see Policy Stat Procedure [place] High Sensitivity Troponin (TNIH) and attachments. Performed By: #### L 500.4050, L100.0100, L501.2450, L503.6005, L501.4020 ####[facility] [address] [place], [address] Lactic Acidon 07-30-2024 Lactate [Moles/Vol] 0.9 mmol/L Normal 0.4-1.9 [facility] Comment on above: Order Comment: Y Performed By: #### L 500.4050, L100.0100, L501.2450, L503.6005, L501.4020 #### [facility] Laboratory [address] [place], [address] Lipaseon 07-30-2024 Lipase [Catalytic activity/Vol] 48 U/L Normal 13-75 [facility] Comment on above: Order Comment: 'TROP ' Serial specimen #1, #2 or #3: 1 Result Comment: [place] aguero note: LIPASE revised reference range effective 22. New Lipase methodology. Expected to produce lower values than the previous assay method. NEW Reference Range: 13 - 75 U/L Performed By: #### L 500.4050, L100.0100, L501.2450, L503.6005, L501.4020 #### [facility] Laboratory [address] [place], [address] Urinalysis, Completeon 07-30 Mucus Ql (Urine sed) 1+ /hpf Normal [facility] Comment on above: Order Comment: MORGAN CTOR TO SPECIFY Performed By: #### L 400.0001 #### [facility] Laboratory [address] [place], [address] EPI,SQUAMOUS 0-5 SEEN Normal 0-5 [facility] Comment on above: Order Comment: MORGAN CTOR TO SPECIFY Performed By: #### L 400.0001 #### [facility] Laboratory [address] [place], [address] RBC 0-5 SEEN Normal 0-5 [facility] Comment on above: Order Comment: MORGAN CTOR TO SPECIFY Performed By: #### L 400.0001 #### [facility] Laboratory [address] [place], [address] WBC 0-5 SEEN Normal 0-5 [facility] Comment on above: Order Comment: MORGAN CTOR TO SPECIFY Performed By: #### L 400.0001 #### [facility] Laboratory [address] [place], [address] BACTERIA 0 SEEN Normal None Seen [facility] Comment on above: Order Comment: MROGAN CTOR TO SPECIFY Performed By: #### L 400.0001 #### [facility] Laboratory [address] [place], [address] Vital Signs Date Time Vital Sign Value Performing Clinician Faci lity 03-13-2025 13:51-0400 Body height 172.[address] Martin Clark DO Work Phone: [phone])[phone] [place] [address] 03-13-2025 13:51-0400 Body mass index (BMI) [Ratio] 28.8 kg/m2 Dr. Martin Clark DO Work Phone: [phone])[phone] [address] 03-13-2025 13:51-0400 Body weight 86.[address] Martin Clark DO Work Phone: 0(309)[phone] [address] 03-13-2025 13:51-0400 Diastolic blood pressure 71 mm[Hg] Dr. Martin Clark DO Work Phone: 2(649)[phone] [place] [address] 03-13-2025 13:51-0400 Heart rate 70 /min Dr. Martin Clark DO Work Phone: 4(019)[phone] [place] [address] 03-13-2025 13:51-0400 Respiratory rate 16 /min Dr. Martin Clark DO Work Phone: 6(515)[phone] [address] 03-13-2025 13:51-0400 Systolic blood pressure 126 mm[Hg] Dr. Martin Clark DO Work Phone: 1(881)[phone] [place] [address] 01-10-2025 14:50-0400 Body height 172.[address] Martin Clark DO Work Phone: 2(224)[phone] [place] [address] 01-10-2025 14:50-0400 Body mass index (BMI) [Ratio] 29.6 kg/m2 Dr. Martin Clark DO Work Phone: [phone])[phone] [address] [place] [id number] 01-10-2025 14:50-0400 Body weight 88.[address] Martin Clark DO Work Phone: 3(044)164-683195 [place] [address] 01-10-2025 14:50-0400 Diastolic blood pressure 99 mm[Hg] Dr. Martin Clark DO Work Phone: 7(996)849-786950 [address] 01-10-2025 14:50-0400 Heart rate 138 /min Dr. Martin Clark DO Work Phone: 1(012)009-354795 [place] [address] 01-10-2025 14:50-0400 Respiratory rate 16 /min Dr. Martin Clark DO Work Phone: 8(413)768-980195 [place] [address] 01-10-2025 14:50-0400 Systolic blood pressure 144 mm[Hg] Dr. Martin Clark DO Work Phone: 2(458)142-187995 [place] [address] 04-21-2023 08:45-0400 Body temperature 97.4 [degF] Dr. Martin Clark Work Phone: 0(229)589-200095 [place] [address] 04-21-2023 08:45-0400 Diastolic blood pressure 76 mm[Hg] Dr. Martin Clark Work Phone: 2(344)443-322795 [place] [address] 04-21-2023 08:45-0400 Heart rate 62 /min Dr. Martin Clark Work Phone: 4(918)712-233295 [place] [address] 04-21-2023 08:45-0400 Respiratory rate 16 /min Dr. Martin Clark Work Phone: 0(972)049-076495 [place] [address] 04-21-2023 08:45-0400 SaO2% (BldA) [Mass fraction] 100 % Dr. Martin Clark Work Phone: 8(906)779-623995 [place] [address] 04-21-2023 08:45-0400 Systolic blood pressure 125 mm[Hg] Dr. Martin Clark Work Phone: 0(644)685-315095 [place] [address] 04-21-2023 07:31-0400 Body height 172.[address] Martin Clark Work Phone: 1(581)312-413495 [place] [address] 04-21-2023 07:31-0400 Body mass index (BMI) [Ratio] 27.9 kg/m2 Dr. Martin Clark Work Phone: 3(230)517-611595 [place] [address] 04-21-2023 07:31-0400 Body weight 83.[address] Martin Clark Work Phone: 0(440)825-557095 [place] [address] 03-12-2023 11:34-0400 Body mass index (BMI) [Ratio] 28.1 kg/m2 Dr. Martin Clark Work Phone: [facility] 03-12-2023 11:34-0400 Body weight 83.[address] Martin Clark Work Phone: [facility] Encounters Encounter Date Encounter Type Care Provider Facility Start: 06-26-2025 End: 06-26-2025 ambulatory [facility] Facility:[facility] Start: 03-13-2025 End: 03-13-[address] Skyler Greer MD -[facility] Work Phone: Start: 03-13-2025 End: 03-13-[address] Martin Clark DO Work Phone: -[facility] Start: 03-05-2025 Non-patient / Non-visit Dr. Demetrio ALCAZAR -[facility] Work Phone: Start: 03-05-2025 End: 03-05-[address] Martin Clark DO Work Phone: -Pulmonary Services/Neurology Start: 03-05-2025 End: 03-05-2025 Patient encounter procedure Ashvin BLAND -Pulmonary Services/Neurology Work Phone: Start: 03-05-2025 End: 03-05-2025 ambulatory Martinladi Clark Facility:[facility] Start: 02-15-2025 Non-patient / Non-visit Dr. Demetrio ALCAZAR -[facility] Start: 02-15-2025 End: 02-15-[address] Martin Clark DO Work Phone: -Cardiovascular Services Start: 02-15-2025 End: 02-15-[address] Skyler Greer MD -Cardiovascular Services Work Phone: Start: 02-15-2025 End: 02-15-2025 ambulatory Martin Clark Facility:[facility] Start: 01-10-2025 End: 05-21-[address] Skyler Greer MD -[facility] Work Phone: Start: 01-10-2025 End: 01-10-[address] Martin Clark DO Work Phone: [facility] Work Phone: Start: 07-30-2024 End: 07-30-2024 Emergency department patient visit Martin Clark Facility:[facility] Start: 04-21-2023 Non-patient / Non-visit Dr. Zoila Clark Work Phone: [facility] Start: 04-21-2023 End: 04-21-2023 Admission to same day surgery center Dr. Martin Clark Work Phone: [facility] Work Phone: Start: 04-21-2023 End: 04-21-[address] Martin Clark Work Phone: [facility] Work Phone: Start: 03-12-2023 Non-patient / Non-visit Dr. Zoila Clark Work Phone: [facility] Work Phone: Procedures Date Procedure Procedure Detail Performing Clinician Start: 04-21-[address] Martin Clark Work Phone: Plan of Treatment Date Care Activity Detail Author Start: 01-10-2025 Evaluation of diagno stic study results [facility] Start: 04-21-2023 Patient discharge [facility] Basic metabolic 2008 panel with ionized calcium - Serum or Plasma [facility] Colonoscopy [facility] Patient referral [facility] Work Phone: Payers Date Payer Category Payer Self-pay [id number] 2024 Unknown [id number] Unknown [id number] 2.16.8 [id number] Unknown [id number] 2.16.8 [id number] Unknown [id number] 2.16.8 [id number] Unknown [id number] 2.16.8 [id number] Unknown [id number] 2.16.8 [id number] Unknown [id number] 2.16.8 [id number] Unknown [id number] 2.16.8 [id number] Unknown [id number] 2.16.8 [id number] Unknown [id number] 2.16.8 [id number] Social History Date Type Detail Facility Start: 04-21-2023 Tobacco smoking stat [facility] Unknown if ever smoked [facility] Start: 1950 Sex Assigned At Male [facility] Start: 12-15-2024 [facility] Goals Date Patient Goal Desired Activity /State Mental Status Date Assessment Result Facility 04-21-2023 Cognitive function Voice/Name [facility] Work Phone: Evaluation note 01-10-2025 Note Date & Type Note Facility 01-10-2025 Evaluation note Diagnosis Onset Date Resolution Afib acute January 10, 2025 2:34pm CHF (congestive heart failure), NYHA class II acute January 10, 2025 2 :34pm HTN (hypertension) chronic January 102024 2:34pm [facility] Work Phone: Evaluation note 01-10-2025 Note Date & Type Note Facility 01-10-2025 Evaluation note Diagnosis Onset Date Resolution Afib acute January 10, 2025 2:34pm CHF (congestive heart failure), NYHA class II acute January 10, 2025 2 :34pm HTN (hypertension) chronic January 102024 2:34pm Afib acute March 13 1:50pm CHF (congestive heart failure), NYHA class II acute March 13, 2025 1:50pm HTN (hypertension) chronic February 212024 1:50pm [facility] Work Phone: Procedure note 04-21-2023 Note Date & Type Note Facility 04-21-2023 Procedure note [facility] Procedure note 04-21-2023 Note Date & Type Note Facility 04-21-2023 Procedure note [facility] Evaluation note Note Date & Type Note Facility Evaluation note Diagnosis Onset Date Encounter for screening for malignant neoplasm of colon acute [facility] Work Phone: Evaluation note Note Date & Type Note Facility Evaluation note No assessment information availa [facility][1] Medical Services Work Phone: History and physical note Note Date & Type Note Facility History and physical note Note Date/Time April 21, 2023 7:54am [facility] Medical Records Department [address] [place] [id number] History & Physical Exam 04/21/23 0753 MR#: [id number] Acct: [id number] Name: AKASH RUTH Rep #:[id number] : 1950 72 From: Giles Jensen DO PCP: Dr. Martin Clark MD Status:[facility] Location: [place] [address] HPI - General General Date of Admission: 04/21/23 Date of Service: 04/21/23 Chief Complaint: Screening colonoscopy HPI Narrative AKASH RUTH, is a 72 M who presents here for screening colonoscopy. He has no significant past medical history. He has not had a colonoscopy in the past. Hedoes not have any abdominal pain, cramping or diarrhea. He is no signs or symptoms of lower GI bleeding. His weight has been stable. Is no family history of colon polyps or colon malignancy. [facility] Medical History (Updated 04/21/23 @ 07:42 [...] spouse Smoking Status: Unknown if ever smoked torito/denominational: Anabaptism ROS Review of Systems ROS Unobtainable: other [...] Martin Clark MD; Giles Jensen DO~ Signed [facility] Work Phone: Reason for referral (narrative) Note Date & Type Note Facility Reason for referral (narrative) No reason for referral information available [facility] Work Phone: Chief Complaint and Reason for Visit Chief Complaint Amb Documentation Reason for Visit Encounter for screen ing for malignant neoplasm of colon Chief Complaint Admit Date EST (AMBER) January 10, 2025 2:34p m Chief Complaint Admit Date EST (AMBER) January 10, 2025 2:34p m A FIB February 15, 2025 8:29 am Reason for Visit Admit Date Afib January 10, 2025 2:34p m CHF (congestive heart failure), NYHA cla ss II January 10, 2025 2:34pm HTN (hypertension) January 10, 2025 2:34p m Chief Complaint Admit Date EST (AMBER) January 10, 2025 2:34p m A FIB February 15, 2025 8:29 am ATRIAL FIBRILLATION March 05, 2025 7:54 am Chief Complaint Admit Date EST (AMBER) January 10, 2025 2:34p m A FIB February 15, 2025 8:29 am ATRIAL FIBRILLATION March 05, 2025 7:54 am 6 WK FU March 13, 2025 1:50 pm Chief Complaint Admit Date EST (AMBER) January 10, 2025 2:34p m A FIB February 15, 2025 8:29 am ATRIAL FIBRILLATION March 05, 2025 7:54 am ATRIAL FIBRILLATION March 05, 2025 8:13 am 6 WK FU March 13, 2025 1:50 pm NEED ORDER March 13, 2025 2:26 pm Reason for Visit Admit Date Afib January 10, 2025 2:34p m CHF (congestive heart failure), NYHA cla ss II January 10, 2025 2:34pm HTN (hypertension) January 10, 2025 2:34p m Afib March 13, 2025 1:50 pm CHF (congestive heart failure), NYHA cla ss II March 13, 2025 1:50pm HTN (hypertension) March 13, 2025 1:50 pm Family History No Family History Records Found Relationship Condition Age at Onset Recorded Date/T luca brother Myocardial infarction Unknown Amyotrophic lateral sclerosis Unknown Advance Directives No Advanced Directives Records Found Advance Directive Response Recorded Date/ Time Living Will No April 21 7:36am Power of Agency Sales Management Assistant No April 21 023 7:36am Summary Purpose Additional Source Comments Care Teams (unrecognized sec tion and content) Team Status: Active Member Role Status Dates Dr. Martin Clark DO Family Provider Active Dr. Martin Clark DO Primary Care Provider Active Team Status: Active Member Role Status Dates Dr. Martin Clark DO Primary Care Provider Active [facility] Attending Provider Active Team Status: Active Member [...] January 10, 2025 End: January 10, 2025 Team Status: Active Member Role/Relationship Status Dates Dr. Martin Clark DO Primary Care Provider Active Team Status: Inactive Member Role/Relationship Status Dates Dr. Martin Clark DO Primary Care Provider Active Start: January 10, 2025 End: January 10, 2025 Dr. Martin Clark DO Referring Provider Active Start: January 10, 2025 End: January 10, 2025 Dr. Skyler Greer MD Attending Provider Active S tart: January 10, 2025 End: January 10, 2025 Team Status: Inactive Member Role/Relationship Status Dates Dr. Martin Clark DO Primary Care Provider Active Start: February 15, 2025 End: February 15, 2025 Dr. Skyler Greer MD Attending Provider Active S tart: February 15, 2025 End: February 15, 2025 Dr. Skyler Greer MD Referring Provider Active S tart: February 15, 2025 End: February 15, 2025 Team Status: Active Member Role/Relationship Status Dates Dr. Martin Clark DO Primary Care Provider Active Start: February 15, 2025 Dr. Skyler Greer MD Attending Provider Active S tart: February 15, 2025 Team Status: Inactive Member Role/Relationship Status Dates Dr. Martin Clark DO Primary Care Provider Active Start: March 05, 2025 End: March 05, 2025 BALDO Champagne Attending Provider Active St art: March 05, 2025 End: March 05, 2025 BALDO Champagne Referring Provider Active St art: March 05, 2025 End: March 05, 2025 Team Status: Inactive Member Role/Relationship Status Dates Dr. Martin Clark DO Primary Care Provider Active Start: March 13, 2025 End: March 13, 2025 Dr. Martin Clark DO Referring Provider Active Start: March 13, 2025 End: March 13, 2025 Dr. Skyler Greer MD Attending Provider Active S tart: March 13, 2025 End: March 13, 2025 Team Status: Active Member Role/Relationship Status Dates Dr. Martin Clark DO Primary Care Provider Active Start: March 05, 2025 Dr. Skyler Greer MD Attending Provider Active S tart: March 05, 2025 BALDO Champagne Referring Provider Active St art: March 05, 2025 Team Status: Inactive Member Role/Relationship Status Dates Dr. Martin Clark DO Primary Care Provider Active Start: March 13, 2025 End: March 13, 2025 Dr. Martin Clark , Referring Provider Active Start: March 13, 2025 End: March 13, 2025 Dr. Skyler Greer MD Attending Provider Active S tart: March 13, 2025 End: March 13, 2025 Team Status: Inactive Member Role/Relationship Status Dates Dr. Martin Clark , Primary Care Provider Active Start: March 13, 2025 End: March 13, 2025 Dr. Skyler Greer MD Attending Provider Active S tart: March 13, 2025 End: March 13, 2025 Dr. Skyler Greer MD Referring Provider Active S tart: March 13, 2025 End: March 13, 2025 Goals (unrecognized section and content) Goals may be documented in a n alternate sectionGoals may be documented in an alternate sectionGoals may be documented in an alternate sectionGoals may be documented in an alternate sectionGoals may be documented in an alternate section (unrecognized sect ion and content) No Status Records Found INFORMATION SOURCE (unrecogn ized section and content) DATE CREATED AUTHOR 07/03/2025 [facility] FOR RECORDS PERTAINING TO PATIENTS [...] BE BASED ON THE PRIMARY CLINICAL RECORDS. [employer] provides no warranty or guarantee of the accuracy or completeness of information in this document.
== END 2025-08-02 12:10 | disposition home or self-care (01) ==
PROVIDERS: PCP Family Medicine; Referring Provider Internal Medicine Cardiovascular Disease; Visit Provider Internal Medicine Cardiovascular Disease
DX: I48.91 Unspecified atrial fibrillation (principal); I11.0 Hypertensive heart disease with heart failure; I50.9 Heart failure, unspecified; Z79.01 Long term (current) use of anticoagulants
CPT/HCPCS: 92960; 93005

== ENCOUNTER → 2025-08-09 | Outpatient (CLI) | payer OTHER, SELFPAY ==
--- NOTE | 2025-08-09 16:26 | RAD_ITS ---
PROCEDURE: CHEST PA AND LATERAL 08/09/2025 REASON FOR EXAM: CARDIOVERSION TECHNIQUE: Procedure Code: RADCXR Modality: DX Procedure: CHEST PA AND LATERAL COMPARISON: 07/30/24 FINDINGS: Scattered reticular opacities may reflect pulmonary interstitial edema versus atypical pneumonia. No focal consolidation. No pleural effusion or pneumothorax. Cardiac silhouette is stable. No acute fractures. RAD/Chest PA and Lateral IMPRESSION: Scattered reticular opacities may reflect pulmonary interstitial edema versus a typical pneumonia. Reading Location: [facility]
[2025-08-09 18:19] LABS: Anion Gap 12 (5-15); BUN 34 mg/dL (4-19); BUN/Creat Ratio 20.4 RATIO (10-20); Calcium,Total 9.3 mg/dL (7.6-11.0); Carbon Dioxide 22.3 mmol/L (21.0-32.0); Chloride 102 mmol/L (98-108); Glucose 106 mg/dL (70-99); Potassium 5.4 mmol/L (3.3-5.1)
== END | disposition home or self-care (01) ==
LOC: RAD 16:25
PROVIDERS: PCP Family Medicine; Referring Provider Nurse Practitioner Gerontology; Visit Provider Nurse Practitioner Gerontology
DX: I48.91 Unspecified atrial fibrillation (principal)
CPT/HCPCS: 36415; 71046; 80048